=== PATIENT | female | born 1930 | race Caucasian/White ===

== ENCOUNTER 2017-11-18 13:01 | Inpatient (IN) | payer OTHER, MEDICARE ==
[~2017-11-18] VITALS: Ht 160 cm; Wt 87.0 kg
--- NOTE | 2017-11-18 14:14 | ED GENERAL ADULT ---
History of Present Illness General Chief Complaint: Syncope and Near-Syncope Stated Complaint: SYNCOPE Source: patient, family, EMS Exam Limitations: no limitations Vital Signs & Intake/Output Vital Signs & Intake/Output Vital Signs Date Time Temp Pulse Resp B/P B/P Pulse O2 O2 Flow FiO2 Mean Ox Delivery Rate 11/18 1700 98.4 67 14 124/64 98 Nasal 4.0L Cannula 11/18 1616 98.2 68 16 146/60 97 Nasal 4.0L Cannula 11/18 1509 98.4 84 22 146/78 99 Room Air 11/18 1348 72 20 127/56 95 Nasal 5.0L Cannula 11/18 1330 78 24 80/48 84 Room Air 11/18 1310 98.9 75 24 91/51 96 Room Air Allergies Coded Allergies: No Known Allergies (11/18/17) Reconcile Medications Amlodipine Besylate 10 MG TABLET 1 TAB PO DAILY HTN (Reported) Atenolol 50 MG TABLET 1 TAB PO DAILY HTN (Reported) Cholecalciferol (Vitamin D3) (Vitamin D) 1,000 UNIT TABLET 1 TAB PO DAILY SUPPLEMENT (Reported) Cyanocobalamin (Vitamin B-12) 1,000 MCG TABLET 1 TAB PO DAILY SUPPLEMENT ( Reported) Indapamide 1.25 MG TABLET 1 TAB PO TWICE WEEKLY HTN (Reported) Iron Polysaccharide Complex (Ferrex 150) 150 MG IRON CAPSULE 1 CAP PO DAILY SUPPLEMENT (Reported) Nitroglycerin 0.4 MG TAB.SUBL 1 TAB SL AD Chest Pain (Reported) 1st sign of attack; may repeat every 5 minutes until relief; if pain persists after 3 tablets in 15 minutes, prompt medical att Rosuvastatin Calcium (Crestor) 40 MG TABLET 1 TAB PO DAILY HLD/CAD (Reported) Warfarin Sodium (Coumadin) 4 MG TABLET 1 TAB PO AD AFIB (Reported) Triage Note: 87F BIBA FROM HOME AFTER SYNCOPAL EPISODE WITH LOC FOR APPROX 1 MINUTE. ARRIVES PALE, SOMEWHAT LETHARGIC. HX CABG, AFIB ON COUMADIN. PT ARRIVES REPORTING HAVING TO GO TO THE BATHROOM, AND DESPITE WEAKNESS INSISTED ON USE OF COMMODE INSTEAD OF BEDPAN. UPON STANDING PT HAD BRIEF LOC ON COMMODE AND ASSISTED X3 TO STRETCHER. VERY LETHARGIC STATING "IM GOING TO ." PT HAD A LARGE, BLACK/BLOODY LOOSE BOWEL MOVEMENT. DENIES ABDOMINAL PAIN. PERRLA. NORMAL S1S2 AND LUNG SOUNDS CLEAR. DENIES ANY PAIN OR HEADACHES. Triage Nurses Notes Reviewed? yes Onset: Gradual Duration: week(s): Timing: multiple episodes today Injury Environment: home Severity: severe No Modifying Factors: none Associated Symptoms: diaphoresis LMP (ages 10-50): post menopausal : No Patient currently breastfeeds: No HPI: This is an 87 yo woman w hx of CAD sp CABG, a fib on coumadin, HTN on BB who presents from home w several weeks of progressive weakness which abruptly worsened today; famly notes that she has had intermittent dark stool also for several weeks. Last coumadin dose last night. She arrives hypotensive, pale appearing, diaphoretic and complaining of dyspnea; she denies any fever/chills, abd pain, C/P. She has brief episode of syncope on my initial evaluation; is markedly hypotensive and requires immediate stabilization. Past History Travel History Traveled to [place] past 21 day No Medical History Any Pertinent Medical History? see below for history Neurological: dementia EENT: NONE Cardiovascular: AFIB, hypertension, CABG Respiratory: NONE (patient on 2LPM home O2) Gastrointestinal: GI BLEED Hepatic: NONE Renal: chronic kidney disease Musculoskeletal: NONE Psychiatric: NONE Endocrine: NONE Surgical History Surgical History: none (cabg), CABG Psychosocial History What is your primary language Estonian Tobacco Use: Never used Family History Hx Contributory? Yes Review of Systems Review of Systems Constitutional: Reports: see HPI, diaphoresis, malaise, weakness. EENTM: Reports: no symptoms. Respiratory: Reports: short of breath. Cardiovascular: Reports: syncope. GI: Reports: melena, changes in stool. Musculoskeletal: Reports: no symptoms. Skin: Reports: no symptoms. Neurological/Psychological: Reports: no symptoms. Hematologic/Endocrine: Reports: no symptoms. Immunologic/Allergic: Reports: no symptoms. Physical Exam Physical Exam General Appearance: lethargic, moderate distress, obese, Pale appearing Head: atraumatic Eyes: Bilateral: normal appearance. Ears, Nose, Throat: normal pharynx (conj pallor) Neck: supple Respiratory: normal breath sounds Cardiovascular: regular rate/rhythm (thready pulses), thready pulses Gastrointestinal: soft, non-tender, melana stools; no taylor blood Rectal: black stool Back: normal inspection Extremities: normal inspection Neurologic/Psych: no motor/sensory deficits Skin: diaphoresis, pallor Lymphatic: adenopathy Core Measures ACS in differential dx? Yes CVA/TIA Diagnosis: No Sepsis Present: No Sepsis Focused Exam Completed? No Progress Differential Diagnoses I considered the following diagnoses in my evaluation of the patient: [Upper GI bleed, lower GI bleed, occult infection, ACS, GI cancer, symptomatic anemia, coumadin overdose] Plan of Care: Orders Procedure Date/time Status Nothing by Mouth 11/19 B Active TROPONIN LEVEL 11/19 0300 Active PROTHROMBIN TIME 11/19 0300 Active ICU LAB BUNDLE 11/19 0300 Active CBC WITHOUT DIFFERENTIAL 11/19 0300 Active EKG 11/19 0300 Active Clear Liquid Diet 11/18 D Complete TROPONIN LEVEL 11/18 2100 Active LACTIC ACID 11/18 2100 Active CBC WITHOUT DIFFERENTIAL 11/18 2100 Active EKG 11/18 2100 Active BLOOD PRODUCT PICKUP 11/18 1734 Active Wound Care/Dressing 11/18 1726 Complete Weight 11/18 1726 Active VTE Mechanical Prophylaxis 11/18 1726 Active Vital Signs 11/18 1726 Active Turn and Reposition 11/18 1726 Active Drains/Tubes 11/18 1726 Complete Teach/Educate 11/18 1726 Active Skin Integrity Protocol 11/18 1726 Active Skin/Pressure Ulcer Assess (Sk 11/18 1726 Active Precautions 11/18 1726 Active Pain Treatment and Response 11/18 1726 Active Nutritional Intake, Monitor 11/18 1726 Active Isolation 11/18 1726 Active CIWA 11/18 1726 Complete Patient Care Conference 11/18 1726 Active Activity/Ambulation 11/18 1726 Active LEUKOCYTE POOR (PACKED CELLS) 11/18 1711 Active FRESH FROZEN PLASMA 11/18 1711 Active LACTIC ACID 11/18 1651 Active ECHOCARDIOGRAM 11/18 1651 Active OXYGEN SETUP (GEN) 11/18 1645 Active Pathway - chart 11/18 1645 Active VRE ACTIVE SURVIELLANCE 11/18 1645 Active Code Status 11/18 1645 Active ACTIVE SURVEILLANCE NARES 11/18 1602 Active LEUKOCYTE POOR (PACKED CELLS) 11/18 1546 Active Admit to inpatient 11/18 1537 Active Patient Data 11/18 1533 Active TROPONIN LEVEL 11/18 1450 Complete PARTIAL THROMBOPLASTIN TIME 11/18 1450 Complete LACTIC ACID 11/18 1351 Complete LEUKOCYTE POOR (PACKED CELLS) 11/18 1350 Active Intake & Output 11/18 1344 Active EKG 11/18 1328 Active TYPE & SCREEN (NOT X-MATCH) 11/18 1317 Active PROTHROMBIN TIME 11/18 1314 Complete COMPREHENSIVE METABOLIC PANEL 11/18 1314 Complete CBC WITHOUT DIFFERENTIAL 11/18 1314 Complete VTE Mechanical Prophylaxis 11/18 UNK Active MISTAKE 11/18 UNK Active Hemoccult 11/18 UNK Active Current Medications Sig/Victoriano Start time Last Medication Dose Stop Time Status Admin Pantoprazole Sodium 40 MG BID 11/18 2100 AC (Protonix) Nystatin 1 JORDYN TID PRN 11/18 1730 AC (Mycostatin) Acetaminophen 650 MG Q6P PRN 11/18 1645 AC (Tylenol) Acetaminophen 1,000 MG Q6P PRN 11/18 1645 AC (Ofirmev) Laboratory Tests 11/18/17 1700: Lactic Acid Pending 11/18/17 1450: Lactic Acid 2.1 11/18/17 1450: Anion Gap 12, Estimated GFR 33 L, BUN/Creatinine Ratio 22.7, Glucose 114 H, Calcium 7.5 L, Total Bilirubin 0.3, AST 13 L, ALT 18, Alkaline Phosphatase 49, Troponin I < 0.01, Total Protein 4.8 L, Albumin 2.5 L, Globulin 2.3, Albumin/ Globulin Ratio 1.1, PT 35.9 H, INR 3.25 H, APTT 30, CBC w Diff NO MAN DIFF REQ , RBC 2.59 L, MCV 87.9, MCH 29.1, MCHC 33.1, RDW 15.3 H, MPV 10.8 H, Gran % 87.2 H, Lymphocytes % 8.6 L, Monocytes % 4.1, Eosinophils % 0, Basophils % 0.1 , Absolute Granulocytes 8.2 H, Absolute Lymphocytes 0.8 L, Absolute Monocytes 0.4, Absolute Eosinophils 0, Absolute Basophils 0 11/18/17 1317: Troponin I Cancelled, APTT Cancelled Microbiology 11/18 1640 UPPER RESP: Surveillance Culture - RECD 11/18 1640 GI: Surveillance Culture - RECD Initial ED EKG: normal sinus rhythm, T wave inversion to Avl Rhythm Strip: normal sinus rhythm Comments: Large bore access obtained; ecg done; labs ordered; Gi consulted; Dr Rivero agrees with plan for ICU admission, possible scope pending INR; Patient improves with IVF; BP stable on recheck Case discussed with on-call training representative and pot tender; they agree with iCU admission, Vit K, transfusion of PRBC and protonix. Dr Yarbrough requests that we hold on FFP at this time. Will hold unless patient has recurrence of bleeding or becomes unstable. Lactate is noted to be mildly elevated; likely 2/2 poor perfusion related to hypotension rather than infection; will hold off on abx at this time; plan to reassess frequently Departure Departure Disposition: STILL A PATIENT Condition: Stable Clinical Impression Primary Impression: GI bleed Secondary Impressions: Symptomatic anemia, Syncope Referrals: Clare Zambrano MD (PCP/Family) Departure Forms: Customer Survey General Discharge Information Admission Note Spoke With: Noris Yarbrough MD Documentation of Exam: Documentation of any treatments & extenuating circumstances including Concerns Regarding Discharge (functional status, medication knowledge or non-compliance, living conditions, etc.) that warrant an admission rather than observation: GI bleed requiring blood transfusion, close monitoring, GI evaluation Critical Care Note Critical Care Note Critical Care Time: 30-74 min ED Attending Observation Initial Observation Note: I have seen and personally examined KB DIAZ on 11/18/17 at 1544. I agree with the current emergency department documentation. The disposition (admission or discharge) is uncertain at this time, she needs a period of observation for the following reason(s): The ED Nurse caring for this patient has been personally informed as to what the patient is being observed for.
--- NOTE | 2017-11-18 14:54 | RADIOLOGY REPORT ---
EXAMINATION: XR PORTABLE CHEST CLINICAL INFORMATION: Syncope COMPARISON: None TECHNIQUE: Portable frontal view of the chest was obtained. FINDINGS: Limited portable AP study. Patient is status post median sternotomy. The sternal wires appear grossly intact. The cardiac silhouette is top normal. There are heavy calcifications at the level of the aortic arch. There is obscuration of the left hemidiaphragm. This may be related to a combination of consolidation and or effusion. In addition, there are suspected left sided lateral rib fractures possibly involving the left sixth through eighth ribs. No definite left pneumothorax. The right lung appears clear aside from basilar atelectasis. There are surgical clips in the left lower cervical region. IMPRESSION: 1. Challenging study secondary to technical factors. 2. Question developing pneumonia at the left lung base with a small to moderate left parapneumonic effusion. Alternatively, if there is a history of recent trauma there may be a hemorrhagic effusion related to adjacent rib fractures which are partially imaged and not well seen on this study secondary to technical factors.
[2017-11-18 15:04] LABS: ABSOLUTE BASOPHIL COUNT 0 /CUMM (0.0-0.2); ABSOLUTE EOSINOPHIL COUNT 0 /CUMM (0.0-0.7); ABSOLUTE GRANULOCYTE CT 8.2 /CUMM (1.4-6.5); ABSOLUTE LYMPH COUNT 0.8 /CUMM (1.2-3.4); ABSOLUTE MONOCYTE COUNT 0.4 /CUMM (0.10-0.60); BASOPHIL % 0.1 % (0.0-2.0); EOSINOPHIL % 0 % (0-5); HEMATOCRIT 22.8 % (37-47); MEAN CORPUSCULAR HGB 29.1 PG (27.0-31.0); MEAN CORPUSCULAR HGB CONC 33.1 G/DL (33.0-37.0); MEAN CORPUSCULAR VOLUME 87.9 FL (81.0-99.0); MEAN PLATELET VOLUME 10.8 FL (7.4-10.4); PLATELET COUNT 200 /CUMM (130-400); RBC DISTRIBUTION WIDTH 15.3 % (11.5-14.5); RED BLOOD CELL CT 2.59 /CUMM (4.20-5.40); WHITE BLOOD CELL COUNT 9.4 /CUMM (4.8-10.8)
[2017-11-18 15:12] LABS: PT 35.9 SEC (9.4-12.5); PTT 30 SEC (25-37)
[2017-11-18 15:15] LABS: GRANULOCYTE % 87.2 % (42.2-75.2)
--- NOTE | 2017-11-18 16:39 | CT SCAN REPORT ---
EXAMINATION: CT HEAD WITHOUT CONTRAST CLINICAL INFORMATION: Syncope with loss of consciousness. On Coumadin. COMPARISON: None TECHNIQUE: Contiguous axial imaging was performed from the skull base to vertex without intravenous administration of contrast. DLP: 863 mGy-cm FINDINGS: There is no evidence of acute intracranial hemorrhage or territorial infarction. No abnormal mass effect or midline shift is seen. Ordaz to white matter differentiation is well preserved. No extra-axial fluid collections are identified. The ventricles are normal in size. Moderate low-attenuation within the subcortical and periventricular white matter. The osseous structures and soft tissues are normal. The mastoid air cells and visualized portions of the paranasal sinuses are well aerated. Moderate to significant calcification involving the cavernous portions of the carotid arteries. IMPRESSION: 1. No acute intracranial hemorrhage. 2. Moderate chronic small vessel ischemic change.
--- NOTE | 2017-11-18 16:55 | History & Physical ---
Jt May MD 11/18/17 1620: General Information and HPI History of Present Illness: 87 year old woman with past medical history of atrial fibrillation on coumadin, coronary artery disease s/p CABG (~2002), hypertension, and dementia brought in by ambulance after "passing out". Patient reports over the past several weeks she has been feeling progressively more fatigued. This morning she awoke in her normal state of health when she went to use the restroom. She urinated and stood up to leave and suddenly felt dizzy and "passed out". She awoke alone on the floor a short time later when she was found by her daughter Jennifer whom called EMS. Collateral information from daughter reveals that patient was actually found in her bed around noon today. She was found crying stating that she needed to use the rest room but didn't have the strength to get up and "wet the bed". The sheets were covered in dark black stool without obvious blood. Patient insisted on going to the restroom to get cleaned up and when walking there with the assistance of her daughter said she had to "throw up" but subsequently slumpped down on top of her daughter. Patients daughter then called EMS. She apparently awoke a short time later. Jennifer reports that her mother has "severe dementia" and has been using a walker due to fatigue and weakness over the past few weeks. She had been apparently having dark stools over the past few days. Patient arrived to the [facility] ED and shortly thereafter insisted on using the commode for a bowel movement. She apparently syncopized again and was found to be unresponsive with a faint pulse and shallow breathing. She was placed in the strecher in [place] position and given a normal saline bolus. Presently patient states that she feels well and other than her fatigue she has no complaints. She denies any recent dark stools, new medications, or use of NSAIDS. She does not believe she hit her head when she fell and was no confused afterward. Review of Systems Specifically she denies any headache, fever, chills, blurred / double vision, current lightheadedness or dizziness, chest pain, palpitations, heartburn, orthopnea, shortness of breath, cough, nausea, vomiting, diarrhea, urinary complaints, numbness, tingling, or weakness. Social History Patient smoked 1.5 ppd for most of her life but quit 25 years ago. She denies using alcohol or recreational drugs. She recently moved from [place] to [place] to live with her daughter Jennifer. She usually ambulates without assistance but has been using a walker recently. She reports multiple recent falls. She requires help with medications and meal preparation. Allergies/Medications Allergies: Coded Allergies: No Known Allergies (11/18/17) Past History Travel History Traveled to [place] past 21 day No Medical History Neurological: dementia EENT: NONE Cardiovascular: AFIB, hypertension, CABG Respiratory: NONE (patient on 2LPM home O2) Gastrointestinal: GI BLEED Hepatic: NONE Renal: chronic kidney disease Musculoskeletal: NONE Psychiatric: NONE Endocrine: NONE Surgical History Surgical History: CABG, carotid endarterectomy x3 Past Family/Social History Psychosocial History Where do you live? Home Who Do You Live With? child Primary Language: Occitan Smoking Status: Former Smoker ETOH Use: denies use Illicit Drug Use: denies illicit drug use Functional Ability ADLs Independent: dressing, eating, toileting, bathing. Ambulation: independent, walker IADLs Independent: shopping, housework, finances, food prep, telephone. Needs Assist: transportation, medication admin. Review of Systems Review of Systems Constitutional: Reports: see HPI. Exam & Diagnostic Data Last 24 Hrs of Vital Signs/I&O Vital Signs Date Time Temp Pulse Resp B/P B/P Pulse O2 O2 Flow FiO2 Mean Ox Delivery Rate 11/18 1616 98.2 68 16 146/60 97 Nasal 4.0L Cannula 11/18 1509 98.4 84 22 146/78 99 Room Air 11/18 1348 72 20 127/56 95 Nasal 5.0L Cannula 11/18 1330 78 24 80/48 84 Room Air 11/18 1310 98.9 75 24 91/51 96 Room Air Intake & Output 11/18 1600 11/18 0800 06/ 0000 Intake Total 2000 Output Total 100 Balance 1900 Intake, IV 2000 Output, Urine 100 Physical Exam General Appearance Alert, Oriented X3, Cooperative, No Acute Distress Skin No Rashes, No Breakdown, No Significant Lesion Skin Temp/Moisture Exam: Warm/Dry Sepsis Skin Exam (color): Normal for Ethnicity HEENT Atraumatic, PERRLA, EOMI, Mucous Membr. moist/pink Neck Supple, No JVD Cardiovascular Regular Rate, Normal S1, Normal S2, No Murmurs Lungs Clear to Auscultation, Normal Air Movement Abdomen Normal Bowel Sounds, Soft, No Tenderness, No Hepatospenomegaly, No Masses Neurological Normal Speech, Normal Tone, Cranial Nerves 3-12 NL Extremities No Clubbing, No Cyanosis, No Edema, Normal Pulses, No Tenderness/ Swelling Vascular Normal Pulses, Pulses Symmetrical Sepsis Peripheral Pulse Location: Dorsalis Pedis Sepsis Peripheral Pulse Exam: Normal Sepsis Cap Refill Exam: <2 Sec Rectal [place] Positive stool Last 24 Hrs of Labs/Georges: Laboratory Tests 11/18/17 1450: Lactic Acid 2.1 11/18/17 1450: Anion Gap 12, Estimated GFR 33 L, BUN/Creatinine Ratio 22.7, Glucose 114 H, Calcium 7.5 L, Total Bilirubin 0.3, AST 13 L, ALT 18, Alkaline Phosphatase 49, Troponin I < 0.01, Total Protein 4.8 L, Albumin 2.5 L, Globulin 2.3, Albumin/ Globulin Ratio 1.1, PT 35.9 H, INR 3.25 H, APTT 30, CBC w Diff NO MAN DIFF REQ , RBC 2.59 L, MCV 87.9, MCH 29.1, MCHC 33.1, RDW 15.3 H, MPV 10.8 H, Gran % 87.2 H, Lymphocytes % 8.6 L, Monocytes % 4.1, Eosinophils % 0, Basophils % 0.1 , Absolute Granulocytes 8.2 H, Absolute Lymphocytes 0.8 L, Absolute Monocytes 0.4, Absolute Eosinophils 0, Absolute Basophils 0 11/18/17 1317: Troponin I Cancelled, APTT Cancelled Microbiology 11/18 1602 UPPER RESP: Surveillance Culture - ORD Assessment/Plan Assessment: 87 year old woman with multiple medical problems significant for atrial fibrillation on coumadin and coronary artery disease brought in by ambulance after passing out at home. Patient was found to be hypoxic and hypotensive for which she was given intravenous fluids in the ED and placed on supplemental oxygen. Vitamin K and FFP were given for a supratherapeutic INR and active bleeding. For further evaluation of these findings she was admitted to the ICU. Patient feels at baseline other than her new fatigue. Patients vitals remain stable at rest after the fluid bolus on small amount of supplement oxygen via nasal cannula. Labs are significant for hemoglobin of 7.6, creatinine of 1.5, lactic acid of 2.1, and INR of 3.25. Patient received 10 mg of IM vitamin K and FFP. CT Head was negative for acute intracranial bleed. CXR demonstrated a questionable pneumonia. EKG demonstrated ST segment depressions in V3-V6, AvL, and I with nonspecific interventricular conduction delay. Troponin is negative. Clinically patient appears to have syncopized secondary to her slow presumed lower GI bleed and associated acute blood loss anemia. Patient should be monitored on telemetry with serial CBC and troponin. Consent for blood tranfusion obtained and placed on chart. Patient may require endoscopic evaluation for her GI bleed. Patient will be given 1 PRBC and 2 units FFP and maintained on protonix. Collateral information obtained from patients daughters Jennifer and Marsha reveals that patient had a similar episode about 25 years ago due to a bleeding "stomach polyp". She is followed by thermostat maker Dr. Randy Castanon and was seen in the [facility] ED last week for evaluation of fatigue and discharged to home. Problem List -Syncope with fall -Acute blood loss anemia, probable GI bleed -Possible acute kidney injury -Supratherapeutic INR -Atrial Fibrillation, on Coumadin -Coronary artery disease s/p CABG -Hypertension -Dementia Plan -Admit to ICU -Supplemental oxygen, goal > 92%, taper as tolerated -Telemetry monitoring -Guaic all stools -Avoid NSAIDS and nephrotoxic agents -2 large-bore peripheral IVs -Start IV fluids if needed -Hold meds: amlodipine, atenolol, supplements, indapamide, iron, ntg, statin, coumadin -GI consult for GI bleed and possible endoscopy -Type and cross -CBC every 6 hours -Daily CBC, ICU bundle, INR -Transfuse PRBC as needed to hemoglobin > 8.0 -Trend troponin / EKG until peak or three negative sets -Transthoracic echocardiogram -Check orthostatics -Pain control with acetaminophen -Clear liquids today, NPO after midnight for possible endoscopy -DVT prophylaxis with ALPS -DNR/DNI As Ranked By This Provider Problem List: 1. GI bleed 2. Acute blood loss anemia 3. Syncope Core Measures/Misc (03/05) Acute Coronary Syndrome ACS Diagnosis: No Congestive Heart Failure Congestive Heart Failure Diagnosis No Cerebrovascular Accident CVA/TIA Diagnosis: No VTE (View Protocol) VTE Risk Factors Age>40 No Mechanical VTE Prophylaxis d/t N/A MechProphylax Ordered No VTE Pharm Prophylaxis d/t Bleeding (Active) Sepsis (View protocol) Sepsis Present: No If YES complete Sepsis Event Note If YES complete Sepsis Event Note Noris Yarbrough 11/18/172: General Information and HPI Allergies/Medications Home Med list Amlodipine Besylate 10 MG TABLET 1 TAB PO DAILY HTN (Reported) Atenolol 50 MG TABLET 1 TAB PO DAILY HTN (Reported) Cholecalciferol (Vitamin D3) (Vitamin D) 1,000 UNIT TABLET 1 TAB PO DAILY SUPPLEMENT (Reported) Cyanocobalamin (Vitamin B-12) 1,000 MCG TABLET 1 TAB PO DAILY SUPPLEMENT ( Reported) Indapamide 1.25 MG TABLET 1 TAB PO TWICE WEEKLY HTN (Reported) Iron Polysaccharide Complex (Ferrex 150) 150 MG IRON CAPSULE 1 CAP PO DAILY SUPPLEMENT (Reported) Nitroglycerin 0.4 MG TAB.SUBL 1 TAB SL AD Chest Pain (Reported) 1st sign of attack; may repeat every 5 minutes until relief; if pain persists after 3 tablets in 15 minutes, prompt medical att Pantoprazole Sodium (Protonix) 40 MG TABLET.DR 1 TAB PO BID s/p GI Bleed Rosuvastatin Calcium (Crestor) 40 MG TABLET 1 TAB PO DAILY HLD/CAD (Reported) Warfarin Sodium (Coumadin) 4 MG TABLET 1 TAB PO AD AFIB (Reported) Core Measures/Misc (03/05) Sepsis (View protocol) If YES complete Sepsis Event Note If YES complete Sepsis Event Note Attending MD Review Statement Attending Statement Attending MD Statement: examined this patient, discuss w/resident/PA/PATHOLOGY LABORATORY AIDE, agreed w/resident/PA/PATHOLOGY LABORATORY AIDE, reviewed EMR data (avail) Attending Assessment/Plan: Patient being admittied for GI bleed and syncope and found to be hypotensive in ER. Pt being admitted to ICU for close monitoring . Pt was given vitamin K in Er and we will give her FFP and will transfuse her I U of PRBC and monitor her hemoglobin closely. D/ w GI dr Griffin and he is going to follow the patient closely with us and will scope the patient likely tomorrow. Will also put the patient on protonix iv for now. Keep her NPO. Will recheck INR after FFPs. In case pt becomes hypotensive or drops her H/h she will get emergent colonoscopy. d/w pt and pts famiy the care plan.
--- NOTE | 2017-11-18 16:55 | Admission Certification ---
Admission Certification Certification Statement - As attending physician, I certify that at the time of - admission, based on clinical presentation, severity of - symptoms, need for further diagnostic testing and - therapeutic interventions, and risk of adverse outcomes - without in-hospital treatment, in my clinical assessment, - this patient requires an acute hospital stay for a minimum - of two nights or longer. I have also considered psychsocial - factors such as support system, advanced age, financial - issues, cognitive issues, and failed out-patient treatments, - past re-admission history, safety of patient, and lack of - compliance as applicable. Specific rationale supporting this admission is: GI bleed with anemia and hypotension.
[2017-11-18 17:00] VITALS: BP 124/64
[2017-11-18] MEDS ORDERED: AMLODIPINE BESY10 M1 PO (17:49)
[2017-11-18] MEDS ORDERED: ATENOLOL50 M1 PO (17:49)
[2017-11-18] MEDS ORDERED: VITAMIN B-121000 MC3 PO (17:49)
[2017-11-18] MEDS ORDERED: FERREX 150150 M1 PO (17:49)
[2017-11-18] MEDS ORDERED: INDAPAMIDE1.25 M1 PO (17:50)
[2017-11-18] MEDS ORDERED: NITROGLYCERIN0.4 M1 SL (17:50)
[2017-11-18] MEDS ORDERED: CRESTOR40 M2 PO (17:50)
[2017-11-18] MEDS ORDERED: VITAMIN D1000 UNIT PO (17:51)
[2017-11-18] MEDS ORDERED: COUMADIN4 M1 PO (17:52)
--- NOTE | 2017-11-18 20:55 | Cons- Gastroenterology ---
General Information and HPI Consulting Request Date of Consult: 11/18/17 Requested By: Noris Yarbrough MD Reason for Consult: Melena Blood loss anemia History of Present Illness: The patient is a poor historian. She denies all GI symptoms. She was brought to the emergency room because of several days of dark stool (per records), and found to be hypotensive. She is anticoagulated. There is no known history of GI bleeding, peptic ulcer disease, liver disease. Per discussion with the patient's daughters, she was diagnosed with anemia and placed on oral iron in February. She has no GI complaints such as nausea, pain or indigestion. For the past 3 weeks she's had loss of appetite, decreased oral intake, and weight loss. She was found to have a black stool today and transported to the emergency room. Allergies/Medications Allergies: Coded Allergies: No Known Allergies (11/18/17) Home Med List: Amlodipine Besylate 10 MG TABLET 1 TAB PO DAILY HTN (Reported) Atenolol 50 MG TABLET 1 TAB PO DAILY HTN (Reported) Cholecalciferol (Vitamin D3) (Vitamin D) 1,000 UNIT TABLET 1 TAB PO DAILY SUPPLEMENT (Reported) Cyanocobalamin (Vitamin B-12) 1,000 MCG TABLET 1 TAB PO DAILY SUPPLEMENT ( Reported) Indapamide 1.25 MG TABLET 1 TAB PO TWICE WEEKLY HTN (Reported) Iron Polysaccharide Complex (Ferrex 150) 150 MG IRON CAPSULE 1 CAP PO DAILY SUPPLEMENT (Reported) Nitroglycerin 0.4 MG TAB.SUBL 1 TAB SL AD Chest Pain (Reported) 1st sign of attack; may repeat every 5 minutes until relief; if pain persists after 3 tablets in 15 minutes, prompt medical att Rosuvastatin Calcium (Crestor) 40 MG TABLET 1 TAB PO DAILY HLD/CAD (Reported) Warfarin Sodium (Coumadin) 4 MG TABLET 1 TAB PO AD AFIB (Reported) Current Medications: Current Medications Sig/Victoriano Start time Last Medication Dose Route Stop Time Status Admin Acetaminophen 650 MG Q6P PRN 11/18 1645 AC PO Acetaminophen 1,000 MG Q6P PRN 11/18 1645 AC IV Dextrose/Sodium 1,000 ML .[id number] 11/18 1645 DC Chloride IV Nystatin 1 JORDYN TID PRN 11/18 1730 AC TOP Pantoprazole Sodium 40 MG BID 11/18 2100 AC IV Pantoprazole Sodium 0 .STK-MED ONE 11/18 1435 DC IV Pantoprazole Sodium 80 MG ONCE ONE 11/18 1400 DC 06/ IV 11/18 1401 1439 Phytonadione 0 .STK-MED ONE 11/18 1436 DC .ROUTE Phytonadione 10 MG ONCE ONE 11/18 1400 DC 06/02 IM 11/18 1401 1439 Past History Travel History Traveled to [place] past 21 day No Medical History Neurological: dementia EENT: NONE Cardiovascular: AFIB, hypertension, CABG Respiratory: NONE (patient on 2LPM home O2) Gastrointestinal: GI BLEED Hepatic: NONE Renal: chronic kidney disease Musculoskeletal: NONE Psychiatric: NONE Endocrine: NONE Surgical History Surgical History: CABG, 1 (cabg) Psychosocial History Where Do You Live? Home Who Do You Live With? child Services at Home: None Primary Language: Malagasy Smoking Status: Former Smoker ETOH Use: denies use Illicit Drug Use: denies illicit drug use Functional Ability ADLs Independent: dressing, eating, toileting, bathing. Ambulation: independent, walker IADLs Independent: shopping, housework, finances, food prep, telephone. Needs Assist: transportation, medication admin. Exam & Diagnostic Data Vital Signs and I&O Vital Signs Date Time Temp Pulse Resp B/P B/P Pulse O2 O2 Flow FiO2 Mean Ox Delivery Rate 11/18 1700 98 Nasal 3.0L Cannula 11/18 1700 98.4 67 14 124/64 98 Nasal 4.0L Cannula 11/18 1616 98.2 68 16 146/60 97 Nasal 4.0L Cannula 11/18 1509 98.4 84 22 146/78 99 Room Air 11/18 1348 72 20 127/56 95 Nasal 5.0L Cannula 11/18 1330 78 24 80/48 84 Room Air 11/18 1310 98.9 75 24 91/51 96 Room Air Intake & Output 11/18 1600 11/18 0400 11/17 1600 11/17 0400 11/16 1600 11/16 0400 Intake Total 2000 Output Total 100 Balance 1900 Intake, IV 2000 Output, Urine 100 Results Pertinent Lab Results: Laboratory Tests 11/18 11/18 11/18 1700 1450 1450 Chemistry Sodium (137 - 145 mmol/L) 146 H Potassium (3.5 - 5.1 mmol/L) 3.9 Chloride (98 - 107 mmol/L) 114 H Carbon Dioxide (22 - 30 mmol/L) 20 L Anion Gap (5 - 16) 12 BUN (7 - 17 mg/dL) 34 H Creatinine (0.5 - 1.0 mg/dL) 1.5 H Estimated GFR (>60 ml/min) 33 L BUN/Creatinine Ratio (7 - 25 %) 22.7 Glucose (65 - 99 mg/dL) 114 H Lactic Acid (0.7 - 2.1 mmol/L) 1.9 2.1 Calcium (8.4 - 10.2 mg/dL) 7.5 L Total Bilirubin (0.2 - 1.3 mg/dL) 0.3 AST (14 - 36 U/L) 13 L ALT (9 - 52 U/L) 18 Alkaline Phosphatase (<127 U/L) 49 Troponin I (< 0.11 ng/ml) < 0.01 Total Protein (6.3 - 8.2 g/dL) 4.8 L Albumin (3.5 - 5.0 g/dL) 2.5 L Globulin (1.9 - 4.2 gm/dL) 2.3 Albumin/Globulin Ratio (1.1 - 2.2 %) 1.1 Coagulation PT (9.4 - 12.5 SEC) 35.9 H INR (0.90 - 1.19) 3.25 H APTT (25 - 37 SEC) 30 Hematology CBC w Diff NO MAN DIFF REQ WBC (4.8 - 10.8 /CUMM) 9.4 RBC (4.20 - 5.40 /CUMM) 2.59 L Hgb (12.0 - 16.0 G/DL) 7.6 L Hct (37 - 47 %) 22.8 L MCV (81.0 - 99.0 FL) 87.9 MCH (27.0 - 31.0 PG) 29.1 MCHC (33.0 - 37.0 G/DL) 33.1 RDW (11.5 - 14.5 %) 15.3 H Plt Count (130 - 400 /CUMM) 200 MPV (7.4 - 10.4 FL) 10.8 H Gran % (42.2 - 75.2 %) 87.2 H Lymphocytes % (20.5 - 51.1 %) 8.6 L Monocytes % (1.7 - 9.3 %) 4.1 Eosinophils % (0 - 5 %) 0 Basophils % (0.0 - 2.0 %) 0.1 Absolute Granulocytes (1.4 - 6.5 /CUMM) 8.2 H Absolute Lymphocytes (1.2 - 3.4 /CUMM) 0.8 L Absolute Monocytes (0.10 - 0.60 /CUMM) 0.4 Absolute Eosinophils (0.0 - 0.7 /CUMM) 0 Absolute Basophils (0.0 - 0.2 /CUMM) 0 11/18 1317 Chemistry Troponin I Cancelled Coagulation APTT Cancelled Assessment/Plan Assessment/Recommendations: Elderly, anticoagulated female presenting with melena by description, hypotension (corrected with IV fluid resuscitation), and blood loss anemia. There is some degree of chronic anemia. She denies GI symptoms. There is no reported history of aspirin/NSAIDs. There is no known liver disease. Recommendations * Transfusion 1 unit of packed red blood cells, and follow CBC every 6 hours. Maintain hemoglobin/hematocrit at greater than 8/24. * Reversal of anticoagulation: Transfusion of 2 units of fresh frozen plasma. The patient has already been given vitamin K 10 mg IM. Follow-up INR in the morning. * IV PPI twice a day * Clear liquid diet; nothing by mouth after midnight * Please call GI immediately with evidence of rebleeding such as hematemesis, red/maroon blood per rectum, hypotension, tachycardia. The patient may need emergent endoscopy. Consult Acknowledgment - Thank you for your consult request.
[2017-11-18 21:33] LABS: ABSOLUTE BASOPHIL COUNT 0 /CUMM (0.0-0.2); ABSOLUTE EOSINOPHIL COUNT 0 /CUMM (0.0-0.7); ABSOLUTE LYMPH COUNT 1.6 /CUMM (1.2-3.4); ABSOLUTE MONOCYTE COUNT 0.4 /CUMM (0.10-0.60); BASOPHIL % 0.4 % (0.0-2.0); EOSINOPHIL % 0.1 % (0-5); GRANULOCYTE % 77.2 % (42.2-75.2); HEMATOCRIT 25.5 % (37-47); MEAN CORPUSCULAR HGB 28.9 PG (27.0-31.0); MEAN CORPUSCULAR HGB CONC 33.1 G/DL (33.0-37.0); MEAN CORPUSCULAR VOLUME 87.4 FL (81.0-99.0); PLATELET COUNT 162 /CUMM (130-400); RBC DISTRIBUTION WIDTH 14.8 % (11.5-14.5); RED BLOOD CELL CT 2.92 /CUMM (4.20-5.40); WHITE BLOOD CELL COUNT 9.1 /CUMM (4.8-10.8)
[2017-11-19] VITALS: BP 114/60
[2017-11-19 03:51] LABS: ABSOLUTE BASOPHIL COUNT 0.1 /CUMM (0.0-0.2); ABSOLUTE EOSINOPHIL COUNT 0 /CUMM (0.0-0.7); ABSOLUTE GRANULOCYTE CT 5.9 /CUMM (1.4-6.5); ABSOLUTE LYMPH COUNT 2.3 /CUMM (1.2-3.4); ABSOLUTE MONOCYTE COUNT 0.6 /CUMM (0.10-0.60); EOSINOPHIL % 0.3 % (0-5); GRANULOCYTE % 66.1 % (42.2-75.2); HEMATOCRIT 23.9 % (37-47); MEAN CORPUSCULAR HGB 29.3 PG (27.0-31.0); MEAN CORPUSCULAR HGB CONC 33.5 G/DL (33.0-37.0); MEAN CORPUSCULAR VOLUME 87.2 FL (81.0-99.0); PLATELET COUNT 155 /CUMM (130-400); RBC DISTRIBUTION WIDTH 14.9 % (11.5-14.5); RED BLOOD CELL CT 2.74 /CUMM (4.20-5.40)
[2017-11-19 03:57] LABS: PT 19.2 SEC (9.4-12.5)
--- NOTE | 2017-11-19 07:38 | PN- Resident CRCU ---
Lewis Malik 11/19/17 0738: Subjective HPI/CRCU Issues: -Syncope with fall -Acute blood loss anemia, probable GI bleed -Possible acute kidney injury -Supratherapeutic INR -Atrial Fibrillation, on Coumadin ( on hold) -Coronary artery disease s/p CABG -Hypertension -Dementia 24 Hour Events: tmax of 98.4, heart rate between 60-70 bpm, normal sinus rhythm, respiratory between 18-20, blood pressure systolic 118 up to 132, diastolic 58 up to 68. she has a total intake of 1450 and output of 950 atenolo, amlodipine, indapamide, NG, rosuvastatin and coumadin on hold Is currently on iv protonix and tylenol. H/h stable at 8.4 Lost iv access, will obtain central line for iv access. will have endoscopy today. npo currently. Objective Vital Signs & I&O Last 8 Hrs of Vitals and I&O: Vital Signs Date Time Temp Pulse Resp B/P B/P Pulse O2 O2 Flow FiO2 Mean Ox Delivery Rate 11/19 0800 99.1 63 20 130/58 95 Nasal 2.0L Cannula 11/19 0800 95 Nasal 2.0L Cannula 11/19 0400 98 Nasal 3.0L Cannula 11/19 0000 98 Nasal 3.0L Cannula / 0000 98.6 64 18 114/60 98 Nasal 3.0L Cannula / 1700 98 Nasal 3.0L Cannula 06/02 1700 98.4 67 14 124/64 98 Nasal 4.0L Cannula 06/02 1616 98.2 68 16 146/60 97 Nasal 4.0L Cannula / 1509 98.4 84 22 146/78 99 Room Air 06/ 1348 72 20 127/56 95 Nasal 5.0L Cannula /02 1330 78 24 80/48 84 Room Air 06/ 1310 98.9 75 24 91/51 96 Room Air Last 24 Hours I&Os 11/19 1600 11/19 0800 11/19 0000 Intake Total 450 1000 Output Total 700 250 Balance -250 750 Intake, Blood 350 710 Product Intake, IV 100 90 Intake, Oral 200 Number 2 1 Bowel Movements Output, Urine 700 250 Patient 87 kg Weight Weight Bed scale Measurement Method Laboratory Tests 11/19/17 0940: CBC w Diff NO MAN DIFF REQ, RBC 2.88 L, MCV 87.2, MCH 29.1, MCHC 33.4, RDW 15.3 H, MPV 10.9 H, Gran % 69.0, Lymphocytes % 23.8, Monocytes % 6.7, Eosinophils % 0.4, Basophils % 0.1, Absolute Granulocytes 6.9 H, Absolute Lymphocytes 2.4, Absolute Monocytes 0.7 H, Absolute Eosinophils 0, Absolute Basophils 0 11/19/17 0330: Anion Gap 11, Estimated GFR 35 L, Glucose 85, Calcium 8.2 L, Phosphorus 2.4 L , Magnesium 1.3 L, Total Bilirubin 0.6, AST 16, ALT 23, Troponin I 0.03, Albumin 3.0 L, PT 19.2 H, INR 1.75 H, CBC w Diff NO MAN DIFF REQ, RBC 2.74 L , MCV 87.2, MCH 29.3, MCHC 33.5, RDW 14.9 H, MPV 11.0 H, Gran % 66.1, Lymphocytes % 26.2, Monocytes % 6.4, Eosinophils % 0.3, Basophils % 1.0, Absolute Granulocytes 5.9, Absolute Lymphocytes 2.3, Absolute Monocytes 0.6, Absolute Eosinophils 0, Absolute Basophils 0.1 11/18/17 2100: Lactic Acid 1.2, Troponin I 0.01, CBC w Diff NO MAN DIFF REQ, RBC 2.92 L, MCV 87.4, MCH 28.9, MCHC 33.1, RDW 14.8 H, MPV 11.0 H, Gran % 77.2 H, Lymphocytes % 17.7 L, Monocytes % 4.6, Eosinophils % 0.1, Basophils % 0.4, Absolute Granulocytes 7.0 H, Absolute Lymphocytes 1.6, Absolute Monocytes 0.4, Absolute Eosinophils 0, Absolute Basophils 0 11/18/17 1700: Lactic Acid 1.9 11/18/17 1450: Lactic Acid 2.1 11/18/17 1450: Anion Gap 12, Estimated GFR 33 L, BUN/Creatinine Ratio 22.7, Glucose 114 H, Calcium 7.5 L, Total Bilirubin 0.3, AST 13 L, ALT 18, Alkaline Phosphatase 49, Troponin I < 0.01, Total Protein 4.8 L, Albumin 2.5 L, Globulin 2.3, Albumin/ Globulin Ratio 1.1, PT 35.9 H, INR 3.25 H, APTT 30, CBC w Diff NO MAN DIFF REQ , RBC 2.59 L, MCV 87.9, MCH 29.1, MCHC 33.1, RDW 15.3 H, MPV 10.8 H, Gran % 87.2 H, Lymphocytes % 8.6 L, Monocytes % 4.1, Eosinophils % 0, Basophils % 0.1 , Absolute Granulocytes 8.2 H, Absolute Lymphocytes 0.8 L, Absolute Monocytes 0.4, Absolute Eosinophils 0, Absolute Basophils 0 11/18/17 1317: Troponin I Cancelled, APTT Cancelled Microbiology Date/Time Procedure - Status Source Growth 11/18 1640 Surveillance Culture - RECD UPPER RESP 11/18 1640 Surveillance Culture - RECD GI Orders Procedure Date/time Status ICU LAB BUNDLE 11/20 0500 Active CBC WITHOUT DIFFERENTIAL 11/20 0500 Active Nothing by Mouth 11/19 B Active LEUKOCYTE POOR (PACKED CELLS) 11/19 0905 Active CBC WITHOUT DIFFERENTIAL 11/19 0900 Complete TROPONIN LEVEL 11/19 0300 Complete PROTHROMBIN TIME 11/19 0300 Complete ICU LAB BUNDLE 11/19 0300 Complete CBC WITHOUT DIFFERENTIAL 11/19 0300 Complete EKG 11/19 0300 Active EKG 11/19 UNK Active Clear Liquid Diet 11/18 D Complete BLOOD PRODUCT PICKUP 11/18 2346 Active BLOOD PRODUCT PICKUP 11/18 2123 Active TROPONIN LEVEL 11/18 2100 Complete LACTIC ACID 11/18 2100 Complete CBC WITHOUT DIFFERENTIAL 11/18 2100 Complete EKG 11/18 2100 Active BLOOD PRODUCT PICKUP 11/18 1734 Active Wound Care/Dressing 11/18 1726 Complete Weight 11/18 1726 Active VTE Mechanical Prophylaxis 11/18 1726 Active Vital Signs 11/18 1726 Active Turn and Reposition 11/18 1726 Active Drains/Tubes 11/18 1726 Complete Teach/Educate 11/18 172 Active Skin Integrity Protocol 11/18 1726 Active Skin/Pressure Ulcer Assess (Sk 11/18 1726 Active Precautions 11/18 1726 Active Pain Treatment and Response 11/18 1726 Active Nutritional Intake, Monitor 11/18 1726 Active Isolation 11/18 1726 Active CIWA 11/18 1726 Complete Patient Care Conference 11/18 1726 Active Activity/Ambulation 11/18 1726 Active LEUKOCYTE POOR (PACKED CELLS) 11/18 1711 Active FRESH FROZEN PLASMA 11/18 1711 Complete LACTIC ACID 11/18 1651 Complete ECHOCARDIOGRAM 11/18 1651 Active OXYGEN SETUP (GEN) 11/18 1645 Active Pathway - chart 11/18 1645 Active VRE ACTIVE SURVIELLANCE 11/18 1645 Active Code Status 11/18 1645 Active ACTIVE SURVEILLANCE NARES 11/18 1602 Active LEUKOCYTE POOR (PACKED CELLS) 11/18 1546 Active Admit to inpatient 11/18 1537 Active Patient Data 11/18 1533 Active TROPONIN LEVEL 11/18 1450 Complete PARTIAL THROMBOPLASTIN TIME 11/18 1450 Complete LACTIC ACID 11/18 1351 Complete LEUKOCYTE POOR (PACKED CELLS) 11/18 1350 Active Intake & Output 11/18 1344 Active EKG 11/18 1328 Active TYPE & SCREEN (NOT X-MATCH) 11/18 1317 Active PROTHROMBIN TIME 11/18 1314 Complete COMPREHENSIVE METABOLIC PANEL 11/18 1314 Complete CBC WITHOUT DIFFERENTIAL 11/18 1314 Complete VTE Mechanical Prophylaxis 11/18 UNK Active MISTAKE 11/18 UNK Active Hemoccult 11/18 UNK Active Exam General Appearance: alert, awake, comfortable Head: atraumatic, normal appearance Respiratory: normal breath sounds, chest non-tender Cardiovascular: regular rate/rhythm Gastrointestinal: normal bowel sounds, soft, non-tender Extremities: normal inspection, normal capillary refill, normal range of motion Cranial Nerves: normal hearing, normal speech, PERRL Skin: intact, normal color, warm/dry Back: normal inspection, normal range of motion Current Medications: Current Medications Sig/Victoriano Start time Last Medication Dose Route Stop Time Status Admin Acetaminophen 650 MG Q6P PRN 11/18 1645 AC PO Acetaminophen 1,000 MG Q6P PRN 11/18 1645 AC IV Dextrose/Sodium 1,000 ML .[id number] 11/18 1645 DC Chloride IV Lorazepam 50 MG ONCE ONE 11/19 0845 CAN Dextrose/Water 500 ML IV 11/19 0846 Magnesium Sulfate 1 GM Q2H 11/19 0800 CAN Dextrose/Water 100 ML IV 11/19 1159 Magnesium Sulfate 1 GM Q2H 11/19 0515 DC 11/19 Dextrose/Water 100 ML IV 11/19 0914 0824 Nystatin 1 JORDYN TID PRN 11/18 1730 AC 11/18 TOP 2121 Pantoprazole Sodium 40 MG BID 11/18 2100 AC 11/18 IV 2121 Pantoprazole Sodium 0 .STK-MED ONE 11/18 1435 DC IV Pantoprazole Sodium 80 MG ONCE ONE 11/18 1400 DC 06/02 IV / 1401 1439 Phytonadione 0 .STK-MED ONE 11/18 1436 DC .ROUTE Phytonadione 10 MG ONCE ONE 11/18 1400 DC 06/02 IM 06/02 1401 1439 Potassium Chloride 10 MEQ Q1H 11/19 0800 DC IV 11/19 0901 Antibiotics Antibiotics? none CXR Findings: SERVICE DATE: 11/18/17 EXAM TYPE: RAD - XRY-PORTABLE CHEST XRAY EXAMINATION: XR PORTABLE CHEST CLINICAL INFORMATION: Syncope COMPARISON: None TECHNIQUE: Portable frontal view of the chest was obtained. FINDINGS: Limited portable AP study. Patient is status post median sternotomy. The sternal wires appear grossly intact. The cardiac silhouette is top normal. There are heavy calcifications at the level of the aortic arch. There is obscuration of the left hemidiaphragm. This may be related to a combination of consolidation and or effusion. In addition, there are suspected left sided lateral rib fractures possibly involving the left sixth through eighth ribs. No definite left pneumothorax. The right lung appears clear aside from basilar atelectasis. There are surgical clips in the left lower cervical region. IMPRESSION: 1. Challenging study secondary to technical factors. 2. Question developing pneumonia at the left lung base with a small to moderate left parapneumonic effusion. Alternatively, if there is a history of recent trauma there may be a hemorrhagic effusion related to adjacent rib fractures which are partially imaged and not well seen on this study secondary to technical factors. CT Scan Findings: SERVICE DATE: 11/18/17 EXAM TYPE: CAT - CT HEAD WO IV CONTRAST EXAMINATION: CT HEAD WITHOUT CONTRAST CLINICAL INFORMATION: Syncope with loss of consciousness. On Coumadin. COMPARISON: None TECHNIQUE: Contiguous axial imaging was performed from the skull base to vertex without intravenous administration of contrast. DLP: 863 mGy-cm FINDINGS: There is no evidence of acute intracranial hemorrhage or territorial infarction. No abnormal mass effect or midline shift is seen. Ordaz to white matter differentiation is well preserved. No extra-axial fluid collections are identified. The ventricles are normal in size. Moderate low-attenuation within the subcortical and periventricular white matter. The osseous structures and soft tissues are normal. The mastoid air cells and visualized portions of the paranasal sinuses are well aerated. Moderate to significant calcification involving the cavernous portions of the carotid arteries. IMPRESSION: 1. No acute intracranial hemorrhage. 2. Moderate chronic small vessel ischemic change. DICTATED BY: Jennifer Calhoun MD DATE/TIME DICTATED:11/18/171633 INSULATION WORKER INTERIOR SURFACE:ALONSO DATE/TIME TRANSCRIBED:11/18/171633 Impression/Plan Impression/Problem List Impression: Ms. Herrmann is a 87-year-old female with past medical history of atrial fibrillation on Coumadin, coronary artery disease status post CABG (2002, hypertension, dementia was brought in by ambulance after a chief complaint of passing out. Collateral information from the daughter revealed that she has been having dark black stool without obvious blood in the last few days along with extreme tiredness and fatigue. She had another episode of syncope at the [facility] emergency department while using the commode. Upon arrival her H/H was found to be 7.6/22.8, MCV of 87.9. BUN/creatinine 34/1.5. Electrolytes sodium of 146, potassium of 3.9, chloride of 114, bicarbonate 20. Her albumin was low at 2.5 and total protein 4.8. At the emergency department, she was found to be hypoxic and hypotensive, was given IV fluids and placed on supplemental oxygen. She she was also found to have a supratherapeutic INR and active bleeding therefore was given FFP and vitamin K. It was also revealed that patient had a similar episode 25 years ago due to bleeding from a stomach polyp. Problem list alongwith assessment and plan : Respiratory Continue to monitor oxygen saturation. Continue to maintain O2 saturation greater than 92%. Infectious disease Cardiology #syncope with fall #atrial fibrillation on anticoagulation. #coronary artery disease status post CABG. #hypertension. * B/p , heart rate stable, continue to monitor on tele, watch BP closely, ct iv hydration, ct to hold all antihtn, cardiac and AC meds. * syncope 2/2 to low blood volume 2/2 to blood loss. * will have EGd today. * Rate under control, ct to monitor. Hematology #acute blood loss anemia, probable source GI. #supratherapeutic INR. * continue to monitor H/H with the goal of hemoglobin above 8, am labs stable hgb - 8.4 * will transfuse one more unit prior to procedure. * After FFP and Vit k , INR 1.75, improved nicely, okay to proceed with GI procedure. * ct to monitor CBC * source most likely GI, will follow endoscopy results. Metabolic * hypokalemia/hypermagnesemia * replete as needed and ct to monitor * Keep Mg > 2 and K > 4 Alimentary/ GI * NPo now * Guaiac positive stools * endoscopy planned today * ct iv PPI Neurology #Dementia. * Reorientation , avoid anticholinergics, dehydration,however she understands questions and answers relevantly today morning when talked about central line procedure, however consent was also obtained from daughters. Nephrology #Acute kidney injury. * prerenal 2/2 to volume loss * ct to monitor, iv hydration, avoid nephrotoxins. Diet : NPO DVT Px : ALPS ( GI Bleed) Pain MX tylenol DNR/DNI Problem List: 1. Symptomatic anemia 2. Syncope 3. Acute blood loss anemia 4. GI bleed Pain Ratin Tomorrow's Labs & Rationales: bep, cbc Plan DVT/Prophylaxis: pharmacological Dixie JOHN,[facility] 11/19/17 0818: Attending MD Review Statement Attending Sign Off Attending Cosign Statement: I have: examined this patient, reviewed DEUSal EMR data, personally reviewd images, discussd w/resident/PA/BUSINESS ANALYTICS SPECIALIST, discussed mgmt plan w/jen, discussed mgmt plan w/CM, discussed mgmt plan w/pt, agreed w/resident/PA/BUSINESS ANALYTICS SPECIALIST, amended to note. Other Findings: Seen and examined independently No significant GI bleed noted this morning however continues to have dark stools No significant tachycardia heart rate is 64 O2 sat 98% on 3 L No other complaints patient continues to have bowel movements Afebrile Pupils reacting extraocular movements intact neck supple there was no significant JVD Lungs were clear Abdominal exam no hepatosplenomegaly nontender No cyanosis clubbing or edema Laboratory data as noted above Creatinine down to 1.4 potassium 3.5 magnesium significantly low phosphorous is low as well hemoglobin is 8 same as before INR was 1.7 initial INR was 3.25. Patient has had 1 unit of PRBCs and 2 FFP so far. IMPRESSION This is an elderly lady with atrial fibrillation on warfarin, coronary artery disease with remote CABG, hypertension, mild dementia, symptomatic syncope due to significant GI bleed. Patient was hypercoagulable and she came in. She also has chronic kidney disease with mild kidney injury which seems to be improving. She does have history of hypertension but no NSAID use no known liver disease. She is now clinically stable. PLAN Continue to watch hemoglobin Anticoagulation has been reversed IV PPI Clear liquid diet Endoscopy today No active signs of significant bleeding today Patient is DNR/DNI
[2017-11-19 08:00] VITALS: BP 130/58
[2017-11-19 10:04] LABS: ABSOLUTE BASOPHIL COUNT 0 /CUMM (0.0-0.2); ABSOLUTE EOSINOPHIL COUNT 0 /CUMM (0.0-0.7); ABSOLUTE GRANULOCYTE CT 6.9 /CUMM (1.4-6.5); ABSOLUTE LYMPH COUNT 2.4 /CUMM (1.2-3.4); ABSOLUTE MONOCYTE COUNT 0.7 /CUMM (0.10-0.60); BASOPHIL % 0.1 % (0.0-2.0); EOSINOPHIL % 0.4 % (0-5); HEMATOCRIT 25.1 % (37-47); MEAN CORPUSCULAR HGB 29.1 PG (27.0-31.0); MEAN CORPUSCULAR HGB CONC 33.4 G/DL (33.0-37.0); MEAN CORPUSCULAR VOLUME 87.2 FL (81.0-99.0); MEAN PLATELET VOLUME 10.9 FL (7.4-10.4); PLATELET COUNT 178 /CUMM (130-400); RBC DISTRIBUTION WIDTH 15.3 % (11.5-14.5); RED BLOOD CELL CT 2.88 /CUMM (4.20-5.40)
--- NOTE | 2017-11-19 10:10 | PN- Gastroenterology ---
Assessment/Plan GI Assessment/Recommendations: Upper GI bleed/melena, with blood loss anemia. Continued melena, although decreased; rising BUN. Therefore, probable mild ongoing bleeding (although with continued mild hypernatremia suggesting free water deficit). Appropriate rise in hemoglobin with transfusion of one unit of packed red blood cells. Vital signs stable. INR is in a comfortable rage for endoscopy. She denies GI symptoms. Recommendations * Transfusion 1 more unit of packed red blood cells, and continue to follow CBC every 8 hours. Maintain hemoglobin/hematocrit at greater than 8/24. * The patient requires a second IV line. * IV PPI twice a day * EGD today Subjective Subjective: The patient passed 4 small melenic movements overnight into this morning. No nausea, vomiting, abdominal pain. No dizziness, lightheadedness, syncope, diaphoresis, chest pain, dyspnea. Objective Vital Signs and I&Os Vital Signs Date Time Temp Pulse Resp B/P B/P Pulse O2 O2 Flow FiO2 Mean Ox Delivery Rate 11/19 0800 99.1 63 20 130/58 95 Nasal 2.0L Cannula 11/19 0800 95 Nasal 2.0L Cannula 11/19 0400 98 Nasal 3.0L Cannula 11/19 0000 98 Nasal 3.0L Cannula 06/ 0000 98.6 64 18 114/60 98 Nasal 3.0L Cannula 06/ 1700 98 Nasal 3.0L Cannula 06/02 1700 98.4 67 14 124/64 98 Nasal 4.0L Cannula 06/02 1616 98.2 68 16 146/60 97 Nasal 4.0L Cannula 06/02 1509 98.4 84 22 146/78 99 Room Air 06/02 1348 72 20 127/56 95 Nasal 5.0L Cannula /02 1330 78 24 80/48 84 Room Air 06/02 1310 98.9 75 24 91/51 96 Room Air Intake & Output / 1600 06/03 0400 06/02 1600 06/ 0400 06/ 1600 06/ 0400 Intake Total 450 1000 2000 Output Total 700 250 100 Balance -663 477 0562 Intake, Blood 350 710 Product Intake, IV 452 05 9574 Intake, Oral 200 Number 2 1 Bowel Movements Output, Urine 700 250 100 Patient 192 lb Weight Weight Bed scale Measurement Method Physical Exam: Alert, conversant. Pale. Anicteric. Abdomen nondistended, soft, nontender. No edema. Current Medications: Current Medications Sig/Victoriano Start time Last Medication Dose Route Stop Time Status Admin Acetaminophen 650 MG Q6P PRN 11/18 1645 AC PO Acetaminophen 1,000 MG Q6P PRN 11/18 1645 AC IV Dextrose/Sodium 1,000 ML .[id number] 11/18 1645 DC Chloride IV Lorazepam 50 MG ONCE ONE 11/19 0845 CAN Dextrose/Water 500 ML IV 11/19 0846 Magnesium Sulfate 1 GM Q2H 11/19 0800 CAN Dextrose/Water 100 ML IV 11/19 1159 Magnesium Sulfate 1 GM Q2H 11/19 0515 DC 11/19 Dextrose/Water 100 ML IV 11/19 0914 0824 Nystatin 1 JORDYN TID PRN 11/18 1730 AC 11/18 TOP 2121 Pantoprazole Sodium 40 MG BID 11/18 2100 AC 11/18 IV 2121 Pantoprazole Sodium 0 .STK-MED ONE 11/18 1435 DC IV Pantoprazole Sodium 80 MG ONCE ONE 11/18 1400 DC 11/18 IV 11/18 1401 1439 Phytonadione 0 .STK-MED ONE 11/18 1436 DC .ROUTE Phytonadione 10 MG ONCE ONE 11/18 1400 DC 06/02 IM 11/18 1401 1439 Potassium Chloride 10 MEQ Q1H 11/19 0800 DC IV 11/19 0901 Results Pertinent Lab Results: Laboratory Tests 11/19 11/19 0940 0330 Chemistry Sodium (137 - 145 mmol/L) 146 H Potassium (3.5 - 5.1 mmol/L) 3.5 Chloride (98 - 107 mmol/L) 111 H Carbon Dioxide (22 - 30 mmol/L) 23 Anion Gap (5 - 16) 11 BUN (7 - 17 mg/dL) 55 H Creatinine (0.5 - 1.0 mg/dL) 1.4 H Estimated GFR (>60 ml/min) 35 L Glucose (65 - 99 mg/dL) 85 Calcium (8.4 - 10.2 mg/dL) 8.2 L Phosphorus (2.5 - 4.5 mg/dL) 2.4 L Magnesium (1.6 - 2.3 mg/dL) 1.3 L Total Bilirubin (0.2 - 1.3 mg/dL) 0.6 AST (14 - 36 U/L) 16 ALT (9 - 52 U/L) 23 Troponin I (< 0.11 ng/ml) 0.03 Albumin (3.5 - 5.0 g/dL) 3.0 L Coagulation PT (9.4 - 12.5 SEC) 19.2 H INR (0.90 - 1.19) 1.75 H Hematology CBC w Diff Pending NO MAN DIFF REQ WBC (4.8 - 10.8 /CUMM) Pending 9.0 RBC (4.20 - 5.40 /CUMM) Pending 2.74 L Hgb (12.0 - 16.0 G/DL) Pending 8.0 L Hct (37 - 47 %) Pending 23.9 L MCV (81.0 - 99.0 FL) Pending 87.2 MCH (27.0 - 31.0 PG) Pending 29.3 MCHC (33.0 - 37.0 G/DL) Pending 33.5 RDW (11.5 - 14.5 %) Pending 14.9 H Plt Count (130 - 400 /CUMM) Pending 155 MPV (7.4 - 10.4 FL) Pending 11.0 H Gran % (42.2 - 75.2 %) 66.1 Lymphocytes % (20.5 - 51.1 %) 26.2 Monocytes % (1.7 - 9.3 %) 6.4 Eosinophils % (0 - 5 %) 0.3 Basophils % (0.0 - 2.0 %) 1.0 Absolute Granulocytes (1.4 - 6.5 /CUMM) 5.9 Absolute Lymphocytes (1.2 - 3.4 /CUMM) 2.3 Absolute Monocytes (0.10 - 0.60 /CUMM) 0.6 Absolute Eosinophils (0.0 - 0.7 /CUMM) 0 Absolute Basophils (0.0 - 0.2 /CUMM) 0.1 06/02 06/02 06/02 2100 1700 1450 Chemistry Lactic Acid (0.7 - 2.1 mmol/L) 1.2 1.9 2.1 Troponin I (< 0.11 ng/ml) 0.01 Hematology CBC w Diff NO MAN DIFF REQ WBC (4.8 - 10.8 /CUMM) 9.1 RBC (4.20 - 5.40 /CUMM) 2.92 L Hgb (12.0 - 16.0 G/DL) 8.4 L Hct (37 - 47 %) 25.5 L MCV (81.0 - 99.0 FL) 87.4 MCH (27.0 - 31.0 PG) 28.9 MCHC (33.0 - 37.0 G/DL) 33.1 RDW (11.5 - 14.5 %) 14.8 H Plt Count (130 - 400 /CUMM) 162 MPV (7.4 - 10.4 FL) 11.0 H Gran % (42.2 - 75.2 %) 77.2 H Lymphocytes % (20.5 - 51.1 %) 17.7 L Monocytes % (1.7 - 9.3 %) 4.6 Eosinophils % (0 - 5 %) 0.1 Basophils % (0.0 - 2.0 %) 0.4 Absolute Granulocytes (1.4 - 6.5 /CUMM) 7.0 H Absolute Lymphocytes (1.2 - 3.4 /CUMM) 1.6 Absolute Monocytes (0.10 - 0.60 /CUMM) 0.4 Absolute Eosinophils (0.0 - 0.7 /CUMM) 0 Absolute Basophils (0.0 - 0.2 /CUMM) 0 06/02 06/02 1450 1317 Chemistry Sodium (137 - 145 mmol/L) 146 H Potassium (3.5 - 5.1 mmol/L) 3.9 Chloride (98 - 107 mmol/L) 114 H Carbon Dioxide (22 - 30 mmol/L) 20 L Anion Gap (5 - 16) 12 BUN (7 - 17 mg/dL) 34 H Creatinine (0.5 - 1.0 mg/dL) 1.5 H Estimated GFR (>60 ml/min) 33 L BUN/Creatinine Ratio (7 - 25 %) 22.7 Glucose (65 - 99 mg/dL) 114 H Calcium (8.4 - 10.2 mg/dL) 7.5 L Total Bilirubin (0.2 - 1.3 mg/dL) 0.3 AST (14 - 36 U/L) 13 L ALT (9 - 52 U/L) 18 Alkaline Phosphatase (<127 U/L) 49 Troponin I (< 0.11 ng/ml) < 0.01 Cancelled Total Protein (6.3 - 8.2 g/dL) 4.8 L Albumin (3.5 - 5.0 g/dL) 2.5 L Globulin (1.9 - 4.2 gm/dL) 2.3 Albumin/Globulin Ratio (1.1 - 2.2 %) 1.1 Coagulation PT (9.4 - 12.5 SEC) 35.9 H INR (0.90 - 1.19) 3.25 H APTT (25 - 37 SEC) 30 Cancelled Hematology CBC w Diff NO MAN DIFF REQ WBC (4.8 - 10.8 /CUMM) 9.4 RBC (4.20 - 5.40 /CUMM) 2.59 L Hgb (12.0 - 16.0 G/DL) 7.6 L Hct (37 - 47 %) 22.8 L MCV (81.0 - 99.0 FL) 87.9 MCH (27.0 - 31.0 PG) 29.1 MCHC (33.0 - 37.0 G/DL) 33.1 RDW (11.5 - 14.5 %) 15.3 H Plt Count (130 - 400 /CUMM) 200 MPV (7.4 - 10.4 FL) 10.8 H Gran % (42.2 - 75.2 %) 87.2 H Lymphocytes % (20.5 - 51.1 %) 8.6 L Monocytes % (1.7 - 9.3 %) 4.1 Eosinophils % (0 - 5 %) 0 Basophils % (0.0 - 2.0 %) 0.1 Absolute Granulocytes (1.4 - 6.5 /CUMM) 8.2 H Absolute Lymphocytes (1.2 - 3.4 /CUMM) 0.8 L Absolute Monocytes (0.10 - 0.60 /CUMM) 0.4 Absolute Eosinophils (0.0 - 0.7 /CUMM) 0 Absolute Basophils (0.0 - 0.2 /CUMM) 0 Imaging/Other Studies: Cardiogram, preliminary, preserved EF.
--- NOTE | 2017-11-19 11:48 | Procedure ---
Minor Surgical Procedure Note Date of Procedure: 11/19/17 Procedure Note: right internal jujular iv access placed due to poor peripheral access. Using ultrasound guidance, under local anesthesia, right ij was identified and accessed percutaneously. placement of central venous cather was performed using sterile seldinger technique without immediate complication. all ports flush and aspriate. CXR pending.
--- NOTE | 2017-11-19 12:49 | RADIOLOGY REPORT ---
EXAMINATION: XR PORTABLE CHEST CLINICAL INFORMATION: Central line placement. COMPARISON: Chest x-ray from 11/18/2017. TECHNIQUE: Portable frontal view of the chest was obtained. FINDINGS: A right-sided central venous line is in place which terminates at the caval-atrial junction. No new airspace opacities are seen. There is question of a small left-sided pleural effusion. The cardiomediastinal silhouette is stable with atherosclerotic calcification at the arch segment. Postsurgical changes and sternotomy wires in place. Reported left-sided rib fractures on the prior study are difficult to visualize on the current examination. IMPRESSION: Central venous line with the distal tip projecting over the cavoatrial junction. No additional new findings.
--- NOTE | 2017-11-19 13:16 | Procedure ---
Minor Surgical Procedure Note Date of Procedure: 11/19/17 Procedure Note: A time-out was completed prior to procedure. Line placement was supervised by Dr. Almanzar. The patient was placed in trendelenburg for right IJ central line access. The right lateral neck was prepped and drapped in sterile fasion. landmarks identified with US guidance. lidocaine 1% plain was used to anesthetize the skin. A triple luman catheter was placed into the internal jugular using the Seldinger technique and under ultrasound guidance. The catheter was guided smoothly over the wire and appriopriate blood return was obtained. each lumen of the catheter was flushed, the catheter was secured using 3-0 silk sure -[address]. A dry sterile dressing was applied, Patient tolarated the procedure well and chest x-ray is pending placemnt for use.
--- NOTE | 2017-11-19 14:13 | Proc Note Endoscopy ---
Endoscopy Procedure Procedure Date: 11/19/17 Procedure Type: EGD with cautery Digital Specialist: Mic Rivero M.D. ASA Classification: III Indications: Melena, blood loss anemia Instrument: diagnostic gastroscope Meds Received: KRISTIN Patient's Tolerance: good Complications: none Extent Reached: third part of duodenum Procedure: Informed consent was obtained from the patient's daughter, Jennfier Coker. The patient was medicated. Lidocaine pharyngeal spray was administered. Pulse oximetry, blood pressure and cardiac monitoring were performed continuously throughout the procedure. The Olympus high-definition gastroscope was inserted into the mouth and advanced to the duodenum. Retroflexion was performed within the stomach to examine the cardia. Careful examination was performed. Findings: The esophagus had normal caliber and contour. The mucosa was normal throughout. There were no varices, although there were prominent submucosal vessels distally. There was no blood in the esophagus. The GE junction at 40 cm was normal. There was no hiatal hernia. The stomach had normal distention, and active peristalsis. The cardia was normal. Mucosa and folds the fundus and body were normal. There were several tiny fundic polyps, left intact. There were no varices, nor gastropathy. There was fresh blood in the proximal antrum. When washed, this revealed a Dieulafoy' s lesion: a subcentimeter area of raised mucosa on the greater curvature, with central indentation/erosion, with fresh blood at its surface. The remainder of the antrum was normal. There were no other erosions or ulcers. The pyloric channel was normal. The duodenal bulb was normal, without erosion, ulceration, deformity or nodularity. The mucosa and folds of the second and third portions of the duodenum were normal. Epinephrine was injected into 2 sites of the antral lesion (on initial contact with the needle, active bleeding ensued). The lesion was cauterized using 25 W bipolar current via a Gold probe. With initial cautery there was continued and at some points increased bleeding. With further, deeper cautery and tissue ablation, hemostasis was achieved. Impression: * Antral Dieulafoy's lesion, cauterized Recommendations: * Pantoprazole 80 mg IV bolus followed by 8 mg per hour infusion * Nothing by mouth for 2 hours, followed by a clear liquid diet * CBC twice daily; transfuse as needed to maintain hemoglobin greater than 8 * No anticoagulation; check INR in the morning CC: Zambrano MD,Clare
[2017-11-19 16:00] VITALS: BP 140/60
[2017-11-19 20:53] LABS: ABSOLUTE BASOPHIL COUNT 0 /CUMM (0.0-0.2); ABSOLUTE EOSINOPHIL COUNT 0.1 /CUMM (0.0-0.7); ABSOLUTE GRANULOCYTE CT 6.7 /CUMM (1.4-6.5); ABSOLUTE LYMPH COUNT 1.8 /CUMM (1.2-3.4); ABSOLUTE MONOCYTE COUNT 0.5 /CUMM (0.10-0.60); BASOPHIL % 0.2 % (0.0-2.0); EOSINOPHIL % 0.8 % (0-5); GRANULOCYTE % 73.2 % (42.2-75.2); HEMATOCRIT 25.6 % (37-47); MEAN CORPUSCULAR HGB 28.8 PG (27.0-31.0); MEAN CORPUSCULAR VOLUME 87.3 FL (81.0-99.0); MEAN PLATELET VOLUME 10.8 FL (7.4-10.4); PLATELET COUNT 161 /CUMM (130-400); RBC DISTRIBUTION WIDTH 15.9 % (11.5-14.5); RED BLOOD CELL CT 2.93 /CUMM (4.20-5.40); WHITE BLOOD CELL COUNT 9.1 /CUMM (4.8-10.8)
[2017-11-20] VITALS: BP 120/60
[2017-11-20 05:45] LABS: ABSOLUTE BASOPHIL COUNT 0 /CUMM (0.0-0.2); ABSOLUTE EOSINOPHIL COUNT 0.2 /CUMM (0.0-0.7); ABSOLUTE GRANULOCYTE CT 5.7 /CUMM (1.4-6.5); ABSOLUTE LYMPH COUNT 1.5 /CUMM (1.2-3.4); ABSOLUTE MONOCYTE COUNT 0.4 /CUMM (0.10-0.60); BASOPHIL % 0.4 % (0.0-2.0); GRANULOCYTE % 72.5 % (42.2-75.2); MEAN CORPUSCULAR VOLUME 87.9 FL (81.0-99.0); MEAN PLATELET VOLUME 10.5 FL (7.4-10.4); PLATELET COUNT 154 /CUMM (130-400); RBC DISTRIBUTION WIDTH 15.5 % (11.5-14.5); RED BLOOD CELL CT 2.74 /CUMM (4.20-5.40); WHITE BLOOD CELL COUNT 7.8 /CUMM (4.8-10.8)
--- NOTE | 2017-11-20 07:25 | PN- Resident CRCU ---
Subjective HPI/CRCU Issues: No acute events overnight. Patient sleeping this AM. Severeal BM since y-day, did not check for blood. No N/v or abd pain. Objective Vital Signs & I&O Last 8 Hrs of Vitals and I&O: Laboratory Tests 11/20/17 0511: Anion Gap 8, Estimated GFR 35 L, Glucose 91, Calcium 8.6, Phosphorus 2.8, Magnesium 1.9, Total Bilirubin 0.8, AST 16, ALT 23, Albumin 2.7 L, PT 14.0 H, INR 1.28 H, CBC w Diff NO MAN DIFF REQ, RBC 2.74 L, MCV 87.9, MCH 29.0, MCHC 33.0, RDW 15.5 H, MPV 10.5 H, Gran % 72.5, Lymphocytes % 19.6 L, Monocytes % 5.5, Eosinophils % 2.0, Basophils % 0.4, Absolute Granulocytes 5.7, Absolute Lymphocytes 1.5, Absolute Monocytes 0.4, Absolute Eosinophils 0.2, Absolute Basophils 0 11/19/17 2020: CBC w Diff NO MAN DIFF REQ, RBC 2.93 L, MCV 87.3, MCH 28.8, MCHC 33.0, RDW 15.9 H, MPV 10.8 H, Gran % 73.2, Lymphocytes % 20.0 L, Monocytes % 5.8, Eosinophils % 0.8, Basophils % 0.2, Absolute Granulocytes 6.7 H, Absolute Lymphocytes 1.8, Absolute Monocytes 0.5, Absolute Eosinophils 0.1, Absolute Basophils 0 Vital Signs Date Time Temp Pulse Resp B/P B/P Pulse O2 O2 Flow FiO2 Mean Ox Delivery Rate 11/20 0400 94 Nasal 2.0L Cannula Exam General Appearance: no apparent distress, alert, awake, obese Respiratory: anterior breath sounds clear Cardiovascular: regular rate/rhythm, systolic murmur Gastrointestinal: normal bowel sounds, soft, non-tender Extremities: trace LLE, 2+ radial pulses Current Medications: Current Medications Sig/Victoriano Start time Last Medication Dose Route Stop Time Status Admin Acetaminophen 650 MG Q6P PRN 11/18 1645 AC PO Acetaminophen 1,000 MG Q6P PRN 11/18 1645 AC IV Magnesium Sulfate 1 GM ONCE ONE 11/20 0800 AC Dextrose/Water 100 ML IV 11/20 1159 Non-Formulary 0 SEE ADMIN CRITERIA 11/20 1015 DC Medication ANY Nystatin 1 JORDYN TID PRN 11/18 1730 AC 11/18 TOP 2121 Pantoprazole Sodium 40 MG Q5H 11/20 1030 AC Dextrose/Water 100 ML IV Pantoprazole Sodium 40 MG ONE ONE 11/19 1715 DC 11/19 IV 11/19 1716 1708 Pantoprazole Sodium 40 MG Q5H 11/19 1630 DC 11/20 Sodium Chloride 100 ML IV 0609 Pantoprazole Sodium 40 MG BID 11/18 2100 DC 11/19 IV 1259 Potassium Chloride 20 MEQ Q1H 11/19 1300 DC 11/19 IV 11/19 1401 1451 Impression/Plan Impression/Problem List Impression: 87-year-old female with past medical history of atrial fibrillation on Coumadin, coronary artery disease status post CABG (2002, hypertension, dementia BIBA for syncope in the setting of dark stools. Upon arrival her H/H was found to be 7.6/22.8, MCV of 87.9. BUN/creatinine 34/1.5. Electrolytes sodium of 146, potassium of 3.9, chloride of 114, bicarbonate 20. Her albumin was low at 2.5 and total protein 4.8. At the emergency department, she was found to be hypoxic and hypotensive, was given IV fluids and placed on supplemental oxygen. She she was also found to have a supratherapeutic INR and active bleeding therefore was given FFP and vitamin K. It was also revealed that patient had a similar episode 25 years ago due to bleeding from a stomach polyp. She had P: Respiratory: Infectious disease Cardiology: #Syncope with fall Most likely secondary to hypotension due to GI bleed. Patient was found to have an episode of syncope on the commode in the ED. #atrial fibrillation on anticoagulation. #coronary artery disease status post CABG. #hypertension. * B/p , heart rate stable, continue to monitor on tele, watch BP closely, ct iv hydration, ct to hold all antihtn, cardiac and AC meds. * syncope 2/2 to low blood volume 2/2 to blood loss. * will have EGd today. * Rate under control, ct to monitor. Hematology #acute blood loss anemia, probable source GI. #supratherapeutic INR. * continue to monitor H/H with the goal of hemoglobin above 8, am labs stable hgb - 8.4 * will transfuse one more unit prior to procedure. * After FFP and Vit k , INR 1.75, improved nicely, okay to proceed with GI procedure. * ct to monitor CBC * source most likely GI, will follow endoscopy results. Metabolic * hypokalemia/hypermagnesemia * replete as needed and ct to monitor * Keep Mg > 2 and K > 4 Alimentary/ GI * NPo now * Guaiac positive stools * endoscopy planned today * ct iv PPI Neurology #Dementia. * Reorientation , avoid anticholinergics, dehydration,however she understands questions and answers relevantly today morning when talked about central line procedure, however consent was also obtained from daughters. Nephrology #Acute kidney injury. * prerenal 2/2 to volume loss * ct to monitor, iv hydration, avoid nephrotoxins. Plan DVT/Prophylaxis: pharmacological
[2017-11-20 08:00] VITALS: BP 135/59
--- NOTE | 2017-11-20 08:38 | PN- Gastroenterology ---
Assessment/Plan GI Assessment/Recommendations: UGI bleed secondary to gastric Dieulafoy's lesion, cauterized. No evidence of rebleeding at this time. Hematocrit stable. Vital signs normal. Recommendations * Continue pantoprazole 8 mg per hour infusion * Advance to full liquid diet * CBC twice daily; transfuse as needed to maintain hemoglobin greater than 8 * Do not re-anticoagulate at this time * May transfer out of ICU Subjective Subjective: Sleepy. No abdominal pain or nausea. Passed a small black bowel movement according to RN. No gross blood per rectum. Objective Vital Signs and I&Os Vital Signs Date Time Temp Pulse Resp B/P B/P Pulse O2 O2 Flow FiO2 Mean Ox Delivery Rate 11/20 0400 94 Nasal 2.0L Cannula 11/20 0000 95 Nasal 2.0L Cannula 11/20 0000 97.6 64 29 120/60 95 Nasal 2.0L Cannula 11/19 2000 96 Nasal 2.0L Cannula 11/19 1600 96 Nasal 2.0L Cannula 11/19 1600 98.4 74 20 140/60 96 Nasal 2.0L Cannula 11/19 1200 95 Nasal 2.0L Cannula Intake & Output 11/20 1600 11/20 0400 11/19 1600 11/19 0400 11/18 1600 11/18 0400 Intake Total 157 807 847 9319 2000 Output Total 857 418 0588 250 100 Balance -278 -306 -963 230 6834 Intake, Blood 70 540 710 Product Intake, IV 157 284 379 94 4017 Intake, Oral 200 Number 3 7 2 1 Bowel Movements Output, Urine 357 452 3185 250 100 Patient 192 lb Weight Weight Bed scale Measurement Method Physical Exam: Sclera anicteric. Abdomen obese, soft, nondistended, nontender. Current Medications: Current Medications Sig/Victoriano Start time Last Medication Dose Route Stop Time Status Admin Acetaminophen 650 MG Q6P PRN 11/18 1645 AC PO Acetaminophen 1,000 MG Q6P PRN 11/18 1645 AC IV Lorazepam 50 MG ONCE ONE 11/19 0845 CAN Dextrose/Water 500 ML IV 11/19 0846 Magnesium Sulfate 1 GM ONCE ONE 11/20 0800 AC Dextrose/Water 100 ML IV 11/20 1159 Magnesium Sulfate 1 GM Q2H 11/19 0515 DC 11/19 Dextrose/Water 100 ML IV 11/19 0914 0824 Nystatin 1 JORDYN TID PRN 11/18 1730 AC 11/18 TOP 2121 Pantoprazole Sodium 40 MG ONE ONE 11/19 1715 DC 11/19 IV 11/19 1716 1708 Pantoprazole Sodium 40 MG Q5H 11/19 1630 AC 11/20 Sodium Chloride 100 ML IV 0609 Pantoprazole Sodium 40 MG BID 11/18 2100 DC 11/19 IV 1259 Potassium Chloride 20 MEQ Q1H 11/19 1300 DC 11/19 IV 11/19 1401 1451 Potassium Chloride 10 MEQ Q1H 11/19 0800 DC IV 11/19 0901 Results Pertinent Lab Results: Laboratory Tests 11/20 11/19 05 2020 Chemistry Sodium (137 - 145 mmol/L) 150 H Potassium (3.5 - 5.1 mmol/L) 3.5 Chloride (98 - 107 mmol/L) 116 H Carbon Dioxide (22 - 30 mmol/L) 26 Anion Gap (5 - 16) 8 BUN (7 - 17 mg/dL) 38 H Creatinine (0.5 - 1.0 mg/dL) 1.4 H Estimated GFR (>60 ml/min) 35 L Glucose (65 - 99 mg/dL) 91 Calcium (8.4 - 10.2 mg/dL) 8.6 Phosphorus (2.5 - 4.5 mg/dL) 2.8 Magnesium (1.6 - 2.3 mg/dL) 1.9 Total Bilirubin (0.2 - 1.3 mg/dL) 0.8 AST (14 - 36 U/L) 16 ALT (9 - 52 U/L) 23 Albumin (3.5 - 5.0 g/dL) 2.7 L Coagulation PT (9.4 - 12.5 SEC) 14.0 H INR (0.90 - 1.19) 1.28 H Hematology CBC w Diff NO MAN DIFF REQ NO MAN DIFF REQ WBC (4.8 - 10.8 /CUMM) 7.8 9.1 RBC (4.20 - 5.40 /CUMM) 2.74 L 2.93 L Hgb (12.0 - 16.0 G/DL) 7.9 L 8.4 L Hct (37 - 47 %) 24.0 L 25.6 L MCV (81.0 - 99.0 FL) 87.9 87.3 MCH (27.0 - 31.0 PG) 29.0 28.8 MCHC (33.0 - 37.0 G/DL) 33.0 33.0 RDW (11.5 - 14.5 %) 15.5 H 15.9 H Plt Count (130 - 400 /CUMM) 154 161 MPV (7.4 - 10.4 FL) 10.5 H 10.8 H Gran % (42.2 - 75.2 %) 72.5 73.2 Lymphocytes % (20.5 - 51.1 %) 19.6 L 20.0 L Monocytes % (1.7 - 9.3 %) 5.5 5.8 Eosinophils % (0 - 5 %) 2.0 0.8 Basophils % (0.0 - 2.0 %) 0.4 0.2 Absolute Granulocytes (1.4 - 6.5 /CUMM) 5.7 6.7 H Absolute Lymphocytes (1.2 - 3.4 /CUMM) 1.5 1.8 Absolute Monocytes (0.10 - 0.60 /CUMM) 0.4 0.5 Absolute Eosinophils (0.0 - 0.7 /CUMM) 0.2 0.1 Absolute Basophils (0.0 - 0.2 /CUMM) 0 0 06/03 06/03 0940 0330 Chemistry Sodium (137 - 145 mmol/L) 146 H Potassium (3.5 - 5.1 mmol/L) 3.5 Chloride (98 - 107 mmol/L) 111 H Carbon Dioxide (22 - 30 mmol/L) 23 Anion Gap (5 - 16) 11 BUN (7 - 17 mg/dL) 55 H Creatinine (0.5 - 1.0 mg/dL) 1.4 H Estimated GFR (>60 ml/min) 35 L Glucose (65 - 99 mg/dL) 85 Calcium (8.4 - 10.2 mg/dL) 8.2 L Phosphorus (2.5 - 4.5 mg/dL) 2.4 L Magnesium (1.6 - 2.3 mg/dL) 1.3 L Total Bilirubin (0.2 - 1.3 mg/dL) 0.6 AST (14 - 36 U/L) 16 ALT (9 - 52 U/L) 23 Troponin I (< 0.11 ng/ml) 0.03 Albumin (3.5 - 5.0 g/dL) 3.0 L Coagulation PT (9.4 - 12.5 SEC) 19.2 H INR (0.90 - 1.19) 1.75 H Hematology CBC w Diff NO MAN DIFF REQ NO MAN DIFF REQ WBC (4.8 - 10.8 /CUMM) 10.0 9.0 RBC (4.20 - 5.40 /CUMM) 2.88 L 2.74 L Hgb (12.0 - 16.0 G/DL) 8.4 L 8.0 L Hct (37 - 47 %) 25.1 L 23.9 L MCV (81.0 - 99.0 FL) 87.2 87.2 MCH (27.0 - 31.0 PG) 29.1 29.3 MCHC (33.0 - 37.0 G/DL) 33.4 33.5 RDW (11.5 - 14.5 %) 15.3 H 14.9 H Plt Count (130 - 400 /CUMM) 178 155 MPV (7.4 - 10.4 FL) 10.9 H 11.0 H Gran % (42.2 - 75.2 %) 69.0 66.1 Lymphocytes % (20.5 - 51.1 %) 23.8 26.2 Monocytes % (1.7 - 9.3 %) 6.7 6.4 Eosinophils % (0 - 5 %) 0.4 0.3 Basophils % (0.0 - 2.0 %) 0.1 1.0 Absolute Granulocytes (1.4 - 6.5 /CUMM) 6.9 H 5.9 Absolute Lymphocytes (1.2 - 3.4 /CUMM) 2.4 2.3 Absolute Monocytes (0.10 - 0.60 /CUMM) 0.7 H 0.6 Absolute Eosinophils (0.0 - 0.7 /CUMM) 0 0 Absolute Basophils (0.0 - 0.2 /CUMM) 0 0.1 06/02 06/02 06/02 2100 1700 1450 Chemistry Lactic Acid (0.7 - 2.1 mmol/L) 1.2 1.9 2.1 Troponin I (< 0.11 ng/ml) 0.01 Hematology CBC w Diff NO MAN DIFF REQ WBC (4.8 - 10.8 /CUMM) 9.1 RBC (4.20 - 5.40 /CUMM) 2.92 L Hgb (12.0 - 16.0 G/DL) 8.4 L Hct (37 - 47 %) 25.5 L MCV (81.0 - 99.0 FL) 87.4 MCH (27.0 - 31.0 PG) 28.9 MCHC (33.0 - 37.0 G/DL) 33.1 RDW (11.5 - 14.5 %) 14.8 H Plt Count (130 - 400 /CUMM) 162 MPV (7.4 - 10.4 FL) 11.0 H Gran % (42.2 - 75.2 %) 77.2 H Lymphocytes % (20.5 - 51.1 %) 17.7 L Monocytes % (1.7 - 9.3 %) 4.6 Eosinophils % (0 - 5 %) 0.1 Basophils % (0.0 - 2.0 %) 0.4 Absolute Granulocytes (1.4 - 6.5 /CUMM) 7.0 H Absolute Lymphocytes (1.2 - 3.4 /CUMM) 1.6 Absolute Monocytes (0.10 - 0.60 /CUMM) 0.4 Absolute Eosinophils (0.0 - 0.7 /CUMM) 0 Absolute Basophils (0.0 - 0.2 /CUMM) 0 06/02 06/02 1450 1317 Chemistry Sodium (137 - 145 mmol/L) 146 H Potassium (3.5 - 5.1 mmol/L) 3.9 Chloride (98 - 107 mmol/L) 114 H Carbon Dioxide (22 - 30 mmol/L) 20 L Anion Gap (5 - 16) 12 BUN (7 - 17 mg/dL) 34 H Creatinine (0.5 - 1.0 mg/dL) 1.5 H Estimated GFR (>60 ml/min) 33 L BUN/Creatinine Ratio (7 - 25 %) 22.7 Glucose (65 - 99 mg/dL) 114 H Calcium (8.4 - 10.2 mg/dL) 7.5 L Total Bilirubin (0.2 - 1.3 mg/dL) 0.3 AST (14 - 36 U/L) 13 L ALT (9 - 52 U/L) 18 Alkaline Phosphatase (<127 U/L) 49 Troponin I (< 0.11 ng/ml) < 0.01 Cancelled Total Protein (6.3 - 8.2 g/dL) 4.8 L Albumin (3.5 - 5.0 g/dL) 2.5 L Globulin (1.9 - 4.2 gm/dL) 2.3 Albumin/Globulin Ratio (1.1 - 2.2 %) 1.1 Coagulation PT (9.4 - 12.5 SEC) 35.9 H INR (0.90 - 1.19) 3.25 H APTT (25 - 37 SEC) 30 Cancelled Hematology CBC w Diff NO MAN DIFF REQ WBC (4.8 - 10.8 /CUMM) 9.4 RBC (4.20 - 5.40 /CUMM) 2.59 L Hgb (12.0 - 16.0 G/DL) 7.6 L Hct (37 - 47 %) 22.8 L MCV (81.0 - 99.0 FL) 87.9 MCH (27.0 - 31.0 PG) 29.1 MCHC (33.0 - 37.0 G/DL) 33.1 RDW (11.5 - 14.5 %) 15.3 H Plt Count (130 - 400 /CUMM) 200 MPV (7.4 - 10.4 FL) 10.8 H Gran % (42.2 - 75.2 %) 87.2 H Lymphocytes % (20.5 - 51.1 %) 8.6 L Monocytes % (1.7 - 9.3 %) 4.1 Eosinophils % (0 - 5 %) 0 Basophils % (0.0 - 2.0 %) 0.1 Absolute Granulocytes (1.4 - 6.5 /CUMM) 8.2 H Absolute Lymphocytes (1.2 - 3.4 /CUMM) 0.8 L Absolute Monocytes (0.10 - 0.60 /CUMM) 0.4 Absolute Eosinophils (0.0 - 0.7 /CUMM) 0 Absolute Basophils (0.0 - 0.2 /CUMM) 0
--- NOTE | 2017-11-20 09:48 | PN- Pulmonary ---
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 No evidence of rebleeding at this time. Hematocrit stable. Vital signs normal. Recommendations * Continue pantoprazole 8 mg per hour infusion * Advance to full liquid diet * CBC twice daily; transfuse as needed to maintain hemoglobin greater than 8 * Do not re-anticoagulate at this time * May transfer out of ICU Objective Current Medications: Current Medications Sig/Victoriano Start time Last Medication Dose Route Stop Time Status Admin Acetaminophen 650 MG Q6P PRN 11/18 1645 AC PO Acetaminophen 1,000 MG Q6P PRN 11/18 1645 AC IV Magnesium Sulfate 1 GM ONCE ONE 11/20 0800 AC Dextrose/Water 100 ML IV 11/20 1159 Nystatin 1 JORDYN TID PRN 11/18 1730 AC 11/18 TOP 2121 Pantoprazole Sodium 40 MG ONE ONE 11/19 1715 DC 11/19 IV 11/19 1716 1708 Pantoprazole Sodium 40 MG Q5H 11/19 1630 AC 11/20 Sodium Chloride 100 ML IV 0609 Pantoprazole Sodium 40 MG BID 11/18 2100 DC 11/19 IV 1259 Potassium Chloride 20 MEQ Q1H 11/19 1300 DC 11/19 IV 11/19 1401 1451 Vital Signs & I&O Last 24 Hrs of Vitals and I&O: Vital Signs Date Time Temp Pulse Resp B/P B/P Pulse O2 O2 Flow FiO2 Mean Ox Delivery Rate 11/20 0400 94 Nasal 2.0L Cannula 11/20 0000 95 Nasal 2.0L Cannula 11/20 0000 97.6 64 29 120/60 95 Nasal 2.0L Cannula 11/19 2000 96 Nasal 2.0L Cannula 11/19 1600 96 Nasal 2.0L Cannula 11/19 1600 98.4 74 20 140/60 96 Nasal 2.0L Cannula 11/19 1200 95 Nasal 2.0L Cannula Intake & Output 11/20 1600 04 0800 11/20 0000 Intake Total 157 354 Output Total 435 660 Balance -278 -306 Intake, Blood 70 Product Intake, IV 157 284 Number 3 7 Bowel Movements Output, Urine 435 660 Laboratory Tests 11/20 Chemistry Sodium (137 - 145 mmol/L) 150 H Potassium (3.5 - 5.1 mmol/L) 3.5 Chloride (98 - 107 mmol/L) 116 H Carbon Dioxide (22 - 30 mmol/L) 26 Anion Gap (5 - 16) 8 BUN (7 - 17 mg/dL) 38 H Creatinine (0.5 - 1.0 mg/dL) 1.4 H Estimated GFR (>60 ml/min) 35 L Glucose (65 - 99 mg/dL) 91 Calcium (8.4 - 10.2 mg/dL) 8.6 Phosphorus (2.5 - 4.5 mg/dL) 2.8 Magnesium (1.6 - 2.3 mg/dL) 1.9 Total Bilirubin (0.2 - 1.3 mg/dL) 0.8 AST (14 - 36 U/L) 16 ALT (9 - 52 U/L) 23 Albumin (3.5 - 5.0 g/dL) 2.7 L Coagulation PT (9.4 - 12.5 SEC) 14.0 H INR (0.90 - 1.19) 1.28 H Hematology CBC w Diff NO MAN DIFF REQ NO MAN DIFF REQ WBC (4.8 - 10.8 /CUMM) 7.8 9.1 RBC (4.20 - 5.40 /CUMM) 2.74 L 2.93 L Hgb (12.0 - 16.0 G/DL) 7.9 L 8.4 L Hct (37 - 47 %) 24.0 L 25.6 L MCV (81.0 - 99.0 FL) 87.9 87.3 MCH (27.0 - 31.0 PG) 29.0 28.8 MCHC (33.0 - 37.0 G/DL) 33.0 33.0 RDW (11.5 - 14.5 %) 15.5 H 15.9 H Plt Count (130 - 400 /CUMM) 154 161 MPV (7.4 - 10.4 FL) 10.5 H 10.8 H Gran % (42.2 - 75.2 %) 72.5 73.2 Lymphocytes % (20.5 - 51.1 %) 19.6 L 20.0 L Monocytes % (1.7 - 9.3 %) 5.5 5.8 Eosinophils % (0 - 5 %) 2.0 0.8 Basophils % (0.0 - 2.0 %) 0.4 0.2 Absolute Granulocytes (1.4 - 6.5 /CUMM) 5.7 6.7 H Absolute Lymphocytes (1.2 - 3.4 /CUMM) 1.5 1.8 Absolute Monocytes (0.10 - 0.60 /CUMM) 0.4 0.5 Absolute Eosinophils (0.0 - 0.7 /CUMM) 0.2 0.1 Absolute Basophils (0.0 - 0.2 /CUMM) 0 0 11/19 11/19 0940 0330 Chemistry Sodium (137 - 145 mmol/L) 146 H Potassium (3.5 - 5.1 mmol/L) 3.5 Chloride (98 - 107 mmol/L) 111 H Carbon Dioxide (22 - 30 mmol/L) 23 Anion Gap (5 - 16) 11 BUN (7 - 17 mg/dL) 55 H Creatinine (0.5 - 1.0 mg/dL) 1.4 H Estimated GFR (>60 ml/min) 35 L Glucose (65 - 99 mg/dL) 85 Calcium (8.4 - 10.2 mg/dL) 8.2 L Phosphorus (2.5 - 4.5 mg/dL) 2.4 L Magnesium (1.6 - 2.3 mg/dL) 1.3 L Total Bilirubin (0.2 - 1.3 mg/dL) 0.6 AST (14 - 36 U/L) 16 ALT (9 - 52 U/L) 23 Troponin I (< 0.11 ng/ml) 0.03 Albumin (3.5 - 5.0 g/dL) 3.0 L Coagulation PT (9.4 - 12.5 SEC) 19.2 H INR (0.90 - 1.19) 1.75 H Hematology CBC w Diff NO MAN DIFF REQ NO MAN DIFF REQ WBC (4.8 - 10.8 /CUMM) 10.0 9.0 RBC (4.20 - 5.40 /CUMM) 2.88 L 2.74 L Hgb (12.0 - 16.0 G/DL) 8.4 L 8.0 L Hct (37 - 47 %) 25.1 L 23.9 L MCV (81.0 - 99.0 FL) 87.2 87.2 MCH (27.0 - 31.0 PG) 29.1 29.3 MCHC (33.0 - 37.0 G/DL) 33.4 33.5 RDW (11.5 - 14.5 %) 15.3 H 14.9 H Plt Count (130 - 400 /CUMM) 178 155 MPV (7.4 - 10.4 FL) 10.9 H 11.0 H Gran % (42.2 - 75.2 %) 69.0 66.1 Lymphocytes % (20.5 - 51.1 %) 23.8 26.2 Monocytes % (1.7 - 9.3 %) 6.7 6.4 Eosinophils % (0 - 5 %) 0.4 0.3 Basophils % (0.0 - 2.0 %) 0.1 1.0 Absolute Granulocytes (1.4 - 6.5 /CUMM) 6.9 H 5.9 Absolute Lymphocytes (1.2 - 3.4 /CUMM) 2.4 2.3 Absolute Monocytes (0.10 - 0.60 /CUMM) 0.7 H 0.6 Absolute Eosinophils (0.0 - 0.7 /CUMM) 0 0 Absolute Basophils (0.0 - 0.2 /CUMM) 0 0.1 06/02 06/02 06/02 2100 1700 1450 Chemistry Lactic Acid (0.7 - 2.1 mmol/L) 1.2 1.9 2.1 Troponin I (< 0.11 ng/ml) 0.01 Hematology CBC w Diff NO MAN DIFF REQ WBC (4.8 - 10.8 /CUMM) 9.1 RBC (4.20 - 5.40 /CUMM) 2.92 L Hgb (12.0 - 16.0 G/DL) 8.4 L Hct (37 - 47 %) 25.5 L MCV (81.0 - 99.0 FL) 87.4 MCH (27.0 - 31.0 PG) 28.9 MCHC (33.0 - 37.0 G/DL) 33.1 RDW (11.5 - 14.5 %) 14.8 H Plt Count (130 - 400 /CUMM) 162 MPV (7.4 - 10.4 FL) 11.0 H Gran % (42.2 - 75.2 %) 77.2 H Lymphocytes % (20.5 - 51.1 %) 17.7 L Monocytes % (1.7 - 9.3 %) 4.6 Eosinophils % (0 - 5 %) 0.1 Basophils % (0.0 - 2.0 %) 0.4 Absolute Granulocytes (1.4 - 6.5 /CUMM) 7.0 H Absolute Lymphocytes (1.2 - 3.4 /CUMM) 1.6 Absolute Monocytes (0.10 - 0.60 /CUMM) 0.4 Absolute Eosinophils (0.0 - 0.7 /CUMM) 0 Absolute Basophils (0.0 - 0.2 /CUMM) 0 11/18 11/18 1450 1317 Chemistry Sodium (137 - 145 mmol/L) 146 H Potassium (3.5 - 5.1 mmol/L) 3.9 Chloride (98 - 107 mmol/L) 114 H Carbon Dioxide (22 - 30 mmol/L) 20 L Anion Gap (5 - 16) 12 BUN (7 - 17 mg/dL) 34 H Creatinine (0.5 - 1.0 mg/dL) 1.5 H Estimated GFR (>60 ml/min) 33 L BUN/Creatinine Ratio (7 - 25 %) 22.7 Glucose (65 - 99 mg/dL) 114 H Calcium (8.4 - 10.2 mg/dL) 7.5 L Total Bilirubin (0.2 - 1.3 mg/dL) 0.3 AST (14 - 36 U/L) 13 L ALT (9 - 52 U/L) 18 Alkaline Phosphatase (<127 U/L) 49 Troponin I (< 0.11 ng/ml) < 0.01 Cancelled Total Protein (6.3 - 8.2 g/dL) 4.8 L Albumin (3.5 - 5.0 g/dL) 2.5 L Globulin (1.9 - 4.2 gm/dL) 2.3 Albumin/Globulin Ratio (1.1 - 2.2 %) 1.1 Coagulation PT (9.4 - 12.5 SEC) 35.9 H INR (0.90 - 1.19) 3.25 H APTT (25 - 37 SEC) 30 Cancelled Hematology CBC w Diff NO MAN DIFF REQ WBC (4.8 - 10.8 /CUMM) 9.4 RBC (4.20 - 5.40 /CUMM) 2.59 L Hgb (12.0 - 16.0 G/DL) 7.6 L Hct (37 - 47 %) 22.8 L MCV (81.0 - 99.0 FL) 87.9 MCH (27.0 - 31.0 PG) 29.1 MCHC (33.0 - 37.0 G/DL) 33.1 RDW (11.5 - 14.5 %) 15.3 H Plt Count (130 - 400 /CUMM) 200 MPV (7.4 - 10.4 FL) 10.8 H Gran % (42.2 - 75.2 %) 87.2 H Lymphocytes % (20.5 - 51.1 %) 8.6 L Monocytes % (1.7 - 9.3 %) 4.1 Eosinophils % (0 - 5 %) 0 Basophils % (0.0 - 2.0 %) 0.1 Absolute Granulocytes (1.4 - 6.5 /CUMM) 8.2 H Absolute Lymphocytes (1.2 - 3.4 /CUMM) 0.8 L Absolute Monocytes (0.10 - 0.60 /CUMM) 0.4 Absolute Eosinophils (0.0 - 0.7 /CUMM) 0 Absolute Basophils (0.0 - 0.2 /CUMM) 0 Microbiology Date/Time Procedure - Status Source Growth 11/18 1640 Surveillance Culture - COMP UPPER RESP 11/18 1640 Surveillance Culture - COMP GI Impression/Plan Impression/Plan Impression/Plan: Sleeping Afebrile Pupils reacting extraocular movements intact neck supple there was no significant JVD Lungs were clear Abdominal exam no hepatosplenomegaly nontender No cyanosis clubbing or edema Other data reviewed EGD showed Impression: * Antral Dieulafoy's lesion, cauterized IMPRESSION This is an elderly lady with atrial fibrillation on warfarin, coronary artery disease with remote CABG, hypertension, mild dementia, symptomatic syncope due to significant GI bleed. Patient was hypercoagulable and she came in. She also has chronic kidney disease with mild kidney injury which seems to be improving. She does have history of hypertension but no NSAID use no known liver disease. She is now clinically stable. EGD as noted above PLAN Continue IV PPI Advanced to full liquid diet C BC twice a day keep hemoglobin more than 7.5 No anticoagulation for now per GI Okay to be transferred to the general medical floor No active signs of significant bleeding today Patient is DNR/DNI
--- NOTE | 2017-11-20 10:36 | ECHOCARDIOGRAM REPORT ---
KB DIAZ Age: 87 : 1930 Gender: F Exam Date: 11/19/2017 08:32 Exam Location: [facility] Ht (in): 66 Wt (lb): 170 BSA: 1.91 BP: 114 / 60 Ordering Physician: Jt May MD Referring Physician: Jt May MD Technologist: Mildred Cordero RDCS Room Number: 107 Indications: PRESYNCOPE/SYNCOPE Rhythm: Sinus Technical Quality: Fair FINDINGS Left Ventricle Mild left ventricular dilatation. Normal left ventricular wall thickness with some proximal septal thickening. No obvious regional wall motion abnormalities. Normal left ventricular ejection fraction visually estimated at >55%. Abnormal relaxation filling pattern of the left ventricle for age (stage 1 diastolic dysfunction). Mildly increased resting left ventricular outflow tract velocity (1.4 m/s). Right Ventricle Normal right ventricular size and function. Right Atrium Normal right atrial size. Left Atrium Left atrium mildly dilated. Mitral Valve Mildly calcified mitral valve annulus. Mitral valve mildly thickened. Mild mitral regurgitation. Aortic Valve Trileaflet aortic valve. Diffuse mild thickening of the aortic valve cusps with mildly reduced excursion. No hemodynamically significant aortic stenosis. Trace aortic regurgitation. Tricuspid Valve Structurally normal tricuspid valve. Mild tricuspid regurgitation. Right ventricular systolic pressure estimated at 34 mmHg. Pulmonic Valve Pulmonic valve not well visualized, grossly normal. No pulmonic regurgitation. Pericardium No pericardial effusion. Great Vessels Normal size aortic root. Mildly dilated ascending aorta. Normal size inferior vena cava. CONCLUSIONS Mild left ventricular dilatation. Normal left ventricular ejection fraction visually estimated at > 55%. Abnormal relaxation filling pattern of the left ventricle for age (stage 1 diastolic dysfunction). Mildly increased resting left ventricular outflow tract velocity (1.4 m/s). Normal right ventricular size and function. Normal right atrial size. Left atrium mildly dilated. Mild mitral regurgitation. No hemodynamically significant aortic stenosis. Trace aortic regurgitation. Mild tricuspid regurgitation. Right ventricular systolic pressure estimated at 34 mmHg. Mildly dilated ascending aorta. Chris Blanton M.D. (Electronically Signed) Final Date: 20 November 2017 10:35 MEASUREMENTS (Male / Female) Normal Values 2D ECHO LV Diastolic Diameter PLAX 5.7 cm 4.2 - 5.9 / 3.9 - 5.3 cm LV Systolic Diameter PLAX 3.9 cm 2.1 - 4.0 cm LV Fractional Shortening PLAX 31.6 % 25 - 46 % LV Ejection Fraction 2D Teich 58.8 % IVS Diastolic Thickness 0.9 cm LVPW Diastolic Thickness 1.0 cm LV Relative Wall Thickness 0.3 RV Internal Dim ED PLAX 2.8 cm 1.9 - 3.8 cm LVOT Diameter 1.9 cm Aortic Root Diameter 3.1 cm LA Systolic Diameter LX 4.6 cm 3.0 - 4.0 / 2.7 - 3.8 cm LA Volume 40.0 cm 18 - 58 / 22 - 52 cm Ascending Aorta Diameter 3.4 cm DOPPLER AV Peak Velocity 174.0 cm/s AV Peak Gradient 12.1 mmHg AV Mean Velocity 123.0 cm/s AV Mean Gradient 7.0 mmHg AV Velocity Time Integral 41.6 cm LVOT Peak Velocity 135.0 cm/s LVOT Peak Gradient 7.3 mmHg LVOT Mean Velocity 97.8 cm/s LVOT Mean Gradient 4.0 mmHg LVOT Velocity Time Integral 32.5 cm LVOT Stroke Volume 92.1 cm AV Area Cont Eq vti 2.2 cm AV Area Cont Eq pk 2.2 cm MV Peak Velocity 127.0 cm/s MV Peak Gradient 6.5 mmHg MV Mean Velocity 73.4 cm/s MV Mean Gradient 2.0 mmHg Mitral E Point Velocity 95.3 cm/s Mitral A Point Velocity 103.0 cm/s Mitral E to A Ratio 0.9 MV PHT Velocity 103.0 cm/s MV Deceleration [place] 303.0 cm/s MV Pressure Half Time 102.0 ms MV Area PHT 2.2 cm MV Deceleration Time 182.0 ms TR Peak Velocity 270.0 cm/s TR Peak Gradient 29.2 mmHg Right Atrial Pressure 5.0 mmHg Pulmonary Artery Systolic Pressu 34.2 mmHg Right Ventricular Systolic Press 34.2 mmHg PV Peak Velocity 112.0 cm/s PV Peak Gradient 5.0 mmHg PV Mean Velocity 83.9 cm/s PV Mean Gradient 3.0 mmHg PV Velocity Time Integral 20.6 cm LV E' Lateral Velocity 11.7 cm/s Mitral E to LV E' Lateral Ratio 8.1 LV E' Septal Velocity 8.9 cm/s Mitral E to LV E' Septal Ratio 10.7
--- NOTE | 2017-11-20 10:53 | PN- Housestaff ---
Subjective Follow-up For: GI bleed Dark stools Syncope Subjective: No acute events overnight. Patient sleeping this AM. Severeal BM since y-day, did not check for blood. No N/v or abd pain. Review of Systems Constitutional: Reports: see HPI. Objective Last 24 Hrs of Vital Signs/I&O Vital Signs Date Time Temp Pulse Resp B/P B/P Pulse O2 O2 Flow FiO2 Mean Ox Delivery Rate 11/20 0400 94 Nasal 2.0L Cannula 11/20 0000 95 Nasal 2.0L Cannula 11/20 0000 97.6 64 29 120/60 95 Nasal 2.0L Cannula 11/19 2000 96 Nasal 2.0L Cannula 11/19 1600 96 Nasal 2.0L Cannula 11/19 1600 98.4 74 20 140/60 96 Nasal 2.0L Cannula 11/19 1200 95 Nasal 2.0L Cannula Intake & Output 11/20 1600 11/20 0800 11/20 0000 Intake Total 157 354 Output Total 435 660 Balance -278 -306 Intake, Blood 70 Product Intake, IV 157 284 Number 3 7 Bowel Movements Output, Urine 435 660 Physical Exam General Appearance: Alert, Oriented X3, Cooperative, obese Cardiovascular: Regular Rate, systolic murmur Lungs: Clear to Auscultation, Normal Air Movement Abdomen: Normal Bowel Sounds, Soft, No Tenderness Extremities: 2+ radial pulse, trace LE edema b/l Current Medications: Current Medications Sig/Victoriano Start time Last Medication Dose Route Stop Time Status Admin Acetaminophen 650 MG Q6P PRN 11/18 1645 AC PO Acetaminophen 1,000 MG Q6P PRN 11/18 1645 AC IV Magnesium Sulfate 1 GM ONCE ONE 11/20 0800 AC Dextrose/Water 100 ML IV 11/20 1159 Non-Formulary 0 SEE ADMIN CRITERIA 11/20 1015 DC Medication ANY Nystatin 1 JORDYN TID PRN 11/18 1730 AC / TOP 2121 Pantoprazole Sodium 40 MG Q5H 11/20 1030 AC Dextrose/Water 100 ML IV Pantoprazole Sodium 40 MG ONE ONE 11/19 1715 DC 11/19 IV 11/19 1716 1708 Pantoprazole Sodium 40 MG Q5H 11/19 1630 DC 11/20 Sodium Chloride 100 ML IV 0609 Pantoprazole Sodium 40 MG BID 11/18 2100 DC 11/19 IV 1259 Potassium Chloride 20 MEQ Q1H 11/19 1300 DC 11/19 IV 11/19 1401 1961 Last 24 Hrs of Lab/Georges Results Last 24 Hrs of Labs/Mics: Laboratory Tests 11/20/17 0511: Anion Gap 8, Estimated GFR 35 L, Glucose 91, Calcium 8.6, Phosphorus 2.8, Magnesium 1.9, Total Bilirubin 0.8, AST 16, ALT 23, Albumin 2.7 L, PT 14.0 H, INR 1.28 H, CBC w Diff NO MAN DIFF REQ, RBC 2.74 L, MCV 87.9, MCH 29.0, MCHC 33.0, RDW 15.5 H, MPV 10.5 H, Gran % 72.5, Lymphocytes % 19.6 L, Monocytes % 5.5, Eosinophils % 2.0, Basophils % 0.4, Absolute Granulocytes 5.7, Absolute Lymphocytes 1.5, Absolute Monocytes 0.4, Absolute Eosinophils 0.2, Absolute Basophils 0 11/19/17 2020: CBC w Diff NO MAN DIFF REQ, RBC 2.93 L, MCV 87.3, MCH 28.8, MCHC 33.0, RDW 15.9 H, MPV 10.8 H, Gran % 73.2, Lymphocytes % 20.0 L, Monocytes % 5.8, Eosinophils % 0.8, Basophils % 0.2, Absolute Granulocytes 6.7 H, Absolute Lymphocytes 1.8, Absolute Monocytes 0.5, Absolute Eosinophils 0.1, Absolute Basophils 0 Assessment/Plan Assessment: 87-year-old female with past medical history of atrial fibrillation on Coumadin, coronary artery disease status post CABG (2002), hypertension, and dementia BIBA for syncope in the setting of dark stools. Upon arrival her H/H was found to be 7.6/22.8, MCV of 87.9. BUN/creatinine 34/1.5. Electrolytes sodium of 146, potassium of 3.9, chloride of 114, bicarbonate 20. Her albumin was low at 2.5 and total protein 4.8. P: #Syncope with fall secondary to GI bleed in with supratherapeutic INR Patient is on warfarin for afib. Initial INR 3.25. Given 2x FFP and 2 pRBC during admission. Syncope episode reported at home most likely secondary to hypotension due to GI bleed. Patient was found to have an episode of syncope on the commode in the ED. It was also revealed that patient had a similar episode 25 years ago due to bleeding from a stomach polyp. EGD revealed dieulafoy lesion which was cauterized. Current INR 1.28 -H/H 7.9/24 today. will transfuse 1 unit -check CBC BID -cont protonix drip -advanced to full liquid diet -hgb goal >8 #hypernatremia Na 146 -> 150 Most likely 2/2 to dehydration and NS -changed protonix drip to d5w -encourage po intake -check repete lytes @ 6pm #atrial fibrillation on anticoagulation Holding anticoagulation per cardiology #coronary artery disease status post CABG. -restart home meds once able to tolerate PO #Acute kidney injury vs CKD Unclear if LI vs CKD given lack of hx Cr remains stable 1.4 -cont to monitor -cont iv hydration, avoid nephrotoxins. #hypertension. Holding BP meds as vitals remain stable and intial hypotension from GI bleed -restart home meds once able to tolerate po #hypokalemia/hypermagnesemia -replete as needed and ct to monitor DNR DNI Clear liquid diet Problem List: 1. Symptomatic anemia 2. Syncope 3. Acute blood loss anemia 4. GI bleed Pain Ratin Pain Location: none Pain Goal: Pain 4 or less Pain Plan: tylenol Tomorrow's Labs & Rationales: cbc bep
[2017-11-20 16:00] VITALS: BP 116/48
[2017-11-20 18:59] LABS: ABSOLUTE BASOPHIL COUNT 0 /CUMM (0.0-0.2); ABSOLUTE EOSINOPHIL COUNT 0.2 /CUMM (0.0-0.7); ABSOLUTE GRANULOCYTE CT 4.4 /CUMM (1.4-6.5); ABSOLUTE LYMPH COUNT 1.3 /CUMM (1.2-3.4); ABSOLUTE MONOCYTE COUNT 0.4 /CUMM (0.10-0.60); BASOPHIL % 0.4 % (0.0-2.0); EOSINOPHIL % 2.8 % (0-5); GRANULOCYTE % 69.5 % (42.2-75.2); HEMATOCRIT 26.5 % (37-47); MEAN CORPUSCULAR HGB 29.5 PG (27.0-31.0); MEAN CORPUSCULAR HGB CONC 33.4 G/DL (33.0-37.0); MEAN CORPUSCULAR VOLUME 88.5 FL (81.0-99.0); MEAN PLATELET VOLUME 11.9 FL (7.4-10.4); PLATELET COUNT 151 /CUMM (130-400); RBC DISTRIBUTION WIDTH 15.5 % (11.5-14.5); RED BLOOD CELL CT 2.99 /CUMM (4.20-5.40); WHITE BLOOD CELL COUNT 6.3 /CUMM (4.8-10.8)
[2017-11-21] VITALS: BP 124/74
[2017-11-21 04:41] LABS: ABSOLUTE BASOPHIL COUNT 0 /CUMM (0.0-0.2); ABSOLUTE EOSINOPHIL COUNT 0.2 /CUMM (0.0-0.7); ABSOLUTE GRANULOCYTE CT 3.5 /CUMM (1.4-6.5); ABSOLUTE LYMPH COUNT 1.3 /CUMM (1.2-3.4); ABSOLUTE MONOCYTE COUNT 0.4 /CUMM (0.10-0.60); BASOPHIL % 0.3 % (0.0-2.0); EOSINOPHIL % 4.5 % (0-5); GRANULOCYTE % 64.8 % (42.2-75.2); HEMATOCRIT 25.4 % (37-47); MEAN CORPUSCULAR HGB 29.5 PG (27.0-31.0); MEAN CORPUSCULAR HGB CONC 33.6 G/DL (33.0-37.0); MEAN CORPUSCULAR VOLUME 87.8 FL (81.0-99.0); MEAN PLATELET VOLUME 10.5 FL (7.4-10.4); PLATELET COUNT 152 /CUMM (130-400); RBC DISTRIBUTION WIDTH 15.7 % (11.5-14.5); WHITE BLOOD CELL COUNT 5.4 /CUMM (4.8-10.8)
--- NOTE | 2017-11-21 05:01 | PN- Resident CRCU ---
Subjective HPI/CRCU Issues: No overnight event. s/p 1 PRBC on 11/20 without complications. Objective Vital Signs & I&O Last 8 Hrs of Vitals and I&O: Intake & Output 11/22 0800 Intake Total 10 Output Total 300 Balance -290 Intake, IV 10 Output, Urine 300 Exam General Appearance: obese, AO x3, cooperative without acute distress Cardiovascular: regular rate/rhythm, systolic murmur Gastrointestinal: normal bowel sounds, soft, non-tender Extremities: normal inspection, trace edema BLE Current Medications: Current Medications Sig/Victoriano Start time Last Medication Dose Route Stop Time Status Admin Acetaminophen 650 MG Q6P PRN 11/18 1645 AC PO Acetaminophen 1,000 MG Q6P PRN 11/18 1645 DC IV Amlodipine Besylate 10 MG DAILY 11/22 899 AC PO Atorvastatin Calcium 80 MG 1700 11/21 1700 AC 11/21 PO 1605 Cholecalciferol 1,000 IU DAILY 11/22 899 AC PO Cyanocobalamin 1,000 MCG DAILY 11/22 899 AC PO Ferrous Sulfate 325 MG DAILY 11/21 1515 AC 11/21 PO 1605 Nystatin 1 JORDYN TID PRN 11/18 1730 AC 11/18 TOP 2121 Omeprazole 40 MG BID 11/22 899 AC PO Omeprazole 40 MG DAILY AC 11/22 0700 DC PO Pantoprazole Sodium 40 MG Q5H 11/20 1030 DC 11/21 Dextrose/Water 100 ML IV 0326 Impression/Plan Impression/Problem List Impression: 87-year-old female with past medical history of atrial fibrillation on Coumadin, coronary artery disease status post CABG (2002), hypertension, and dementia BIBA for syncope in the setting of dark stools. Upon arrival her H/H was found to be 7.6/22.8, MCV of 87.9. BUN/creatinine 34/1.5. Electrolytes sodium of 146, potassium of 3.9, chloride of 114, bicarbonate 20. Her albumin was low at 2.5 and total protein 4.8. P: #Syncope with fall secondary to GI bleed in with supratherapeutic INR Patient is on warfarin for afib. Initial INR 3.25. Given 2x FFP and 2 pRBC during admission. Syncope episode reported at home most likely secondary to hypotension due to GI bleed. Patient was found to have an episode of syncope on the commode in the ED. It was also revealed that patient had a similar episode 25 years ago due to bleeding from a stomach polyp. EGD revealed dieulafoy lesion which was cauterized. Current INR 1.28 on latest lab -H/H 8.5/25.4 on latest lab s/p 1u PRBC on 11/20. will keep hgb >8 -cont protonix drip -advanced to full liquid diet #hypernatremia Na 146 -> 150 -> 145 -> 147 Most likely 2/2 to dehydration and NS -changed protonix drip to d5w -encourage po intake #atrial fibrillation on anticoagulation Holding anticoagulation per cardiology. #coronary artery disease status post CABG. -will restart home meds as pt is now full liquid diet without events. #Acute kidney injury vs CKD Unclear if LI vs CKD given lack of hx Cr remains stable 1.3 on latest lab -cont to monitor -cont iv hydration, avoid nephrotoxins. #hypertension. Holding BP meds as vitals remain stable and intial hypotension from GI bleed -restart home meds once able to tolerate po #hypokalemia/hypomagnesemia -replete as needed and ct to monitor. Currently stable. DNR DNI Full liquid diet Problem List: 1. Symptomatic anemia 2. Syncope 3. Acute blood loss anemia 4. GI bleed Pain Ratin Tomorrow's Labs & Rationales: ICU CBC Plan DVT/Prophylaxis: pharmacological
[2017-11-21 08:00] VITALS: BP 132/50
--- NOTE | 2017-11-21 09:12 | PN- CRCU ---
Subjective HPI/Critical Care Issues: Doing ok S/p prbc Now stable Objective Current Medications: Current Medications Sig/Victoriano Start time Last Medication Dose Route Stop Time Status Admin Acetaminophen 650 MG Q6P PRN 11/18 1645 AC PO Acetaminophen 1,000 MG Q6P PRN 11/18 1645 AC IV Magnesium Sulfate 1 GM ONCE ONE 11/20 0800 DC 11/20 Dextrose/Water 100 ML IV 11/20 1159 0800 Non-Formulary 0 SEE ADMIN CRITERIA 11/20 1015 DC Medication ANY Nystatin 1 JORDYN TID PRN 11/18 1730 AC 11/18 TOP 2121 Pantoprazole Sodium 40 MG Q5H 11/20 1030 AC 11/21 Dextrose/Water 100 ML IV 0326 Pantoprazole Sodium 40 MG Q5H 11/19 1630 DC 11/20 Sodium Chloride 100 ML IV 0609 Potassium Chloride 40 MEQ ONCE ONE 11/20 1115 DC 11/20 PO 11/20 1116 1215 Vital Signs & I&O Last 24 Hrs of Vitals and I&O: Laboratory Tests 11/21 11/20 0425 1743 Chemistry Sodium (137 - 145 mmol/L) 147 H 145 Potassium (3.5 - 5.1 mmol/L) 3.5 3.8 Chloride (98 - 107 mmol/L) 112 H 112 H Carbon Dioxide (22 - 30 mmol/L) 28 26 Anion Gap (5 - 16) 8 7 BUN (7 - 17 mg/dL) 23 H 29 H Creatinine (0.5 - 1.0 mg/dL) 1.3 H 1.3 H Estimated GFR (>60 ml/min) 39 L 39 L Glucose (65 - 99 mg/dL) 100 H 92 Calcium (8.4 - 10.2 mg/dL) 7.9 L 8.1 L Phosphorus (2.5 - 4.5 mg/dL) 2.5 2.5 Magnesium (1.6 - 2.3 mg/dL) 1.8 2.0 Total Bilirubin (0.2 - 1.3 mg/dL) 0.7 0.8 AST (14 - 36 U/L) 21 20 ALT (9 - 52 U/L) 26 23 Albumin (3.5 - 5.0 g/dL) 2.7 L 2.8 L Hematology CBC w Diff NO MAN DIFF REQ NO MAN DIFF REQ WBC (4.8 - 10.8 /CUMM) 5.4 6.3 RBC (4.20 - 5.40 /CUMM) 2.90 L 2.99 L Hgb (12.0 - 16.0 G/DL) 8.5 L 8.8 L Hct (37 - 47 %) 25.4 L 26.5 L MCV (81.0 - 99.0 FL) 87.8 88.5 MCH (27.0 - 31.0 PG) 29.5 29.5 MCHC (33.0 - 37.0 G/DL) 33.6 33.4 RDW (11.5 - 14.5 %) 15.7 H 15.5 H Plt Count (130 - 400 /CUMM) 152 151 MPV (7.4 - 10.4 FL) 10.5 H 11.9 H Gran % (42.2 - 75.2 %) 64.8 69.5 Lymphocytes % (20.5 - 51.1 %) 23.7 21.5 Monocytes % (1.7 - 9.3 %) 6.7 5.8 Eosinophils % (0 - 5 %) 4.5 2.8 Basophils % (0.0 - 2.0 %) 0.3 0.4 Absolute Granulocytes (1.4 - 6.5 /CUMM) 3.5 4.4 Absolute Lymphocytes (1.2 - 3.4 /CUMM) 1.3 1.3 Absolute Monocytes (0.10 - 0.60 /CUMM) 0.4 0.4 Absolute Eosinophils (0.0 - 0.7 /CUMM) 0.2 0.2 Absolute Basophils (0.0 - 0.2 /CUMM) 0 0 06/04 /03 0511 2020 Chemistry Sodium (137 - 145 mmol/L) 150 H Potassium (3.5 - 5.1 mmol/L) 3.5 Chloride (98 - 107 mmol/L) 116 H Carbon Dioxide (22 - 30 mmol/L) 26 Anion Gap (5 - 16) 8 BUN (7 - 17 mg/dL) 38 H Creatinine (0.5 - 1.0 mg/dL) 1.4 H Estimated GFR (>60 ml/min) 35 L Glucose (65 - 99 mg/dL) 91 Calcium (8.4 - 10.2 mg/dL) 8.6 Phosphorus (2.5 - 4.5 mg/dL) 2.8 Magnesium (1.6 - 2.3 mg/dL) 1.9 Total Bilirubin (0.2 - 1.3 mg/dL) 0.8 AST (14 - 36 U/L) 16 ALT (9 - 52 U/L) 23 Albumin (3.5 - 5.0 g/dL) 2.7 L Coagulation PT (9.4 - 12.5 SEC) 14.0 H INR (0.90 - 1.19) 1.28 H Hematology CBC w Diff NO MAN DIFF REQ NO MAN DIFF REQ WBC (4.8 - 10.8 /CUMM) 7.8 9.1 RBC (4.20 - 5.40 /CUMM) 2.74 L 2.93 L Hgb (12.0 - 16.0 G/DL) 7.9 L 8.4 L Hct (37 - 47 %) 24.0 L 25.6 L MCV (81.0 - 99.0 FL) 87.9 87.3 MCH (27.0 - 31.0 PG) 29.0 28.8 MCHC (33.0 - 37.0 G/DL) 33.0 33.0 RDW (11.5 - 14.5 %) 15.5 H 15.9 H Plt Count (130 - 400 /CUMM) 154 161 MPV (7.4 - 10.4 FL) 10.5 H 10.8 H Gran % (42.2 - 75.2 %) 72.5 73.2 Lymphocytes % (20.5 - 51.1 %) 19.6 L 20.0 L Monocytes % (1.7 - 9.3 %) 5.5 5.8 Eosinophils % (0 - 5 %) 2.0 0.8 Basophils % (0.0 - 2.0 %) 0.4 0.2 Absolute Granulocytes (1.4 - 6.5 /CUMM) 5.7 6.7 H Absolute Lymphocytes (1.2 - 3.4 /CUMM) 1.5 1.8 Absolute Monocytes (0.10 - 0.60 /CUMM) 0.4 0.5 Absolute Eosinophils (0.0 - 0.7 /CUMM) 0.2 0.1 Absolute Basophils (0.0 - 0.2 /CUMM) 0 0 06/03 0940 Hematology CBC w Diff NO MAN DIFF REQ WBC (4.8 - 10.8 /CUMM) 10.0 RBC (4.20 - 5.40 /CUMM) 2.88 L Hgb (12.0 - 16.0 G/DL) 8.4 L Hct (37 - 47 %) 25.1 L MCV (81.0 - 99.0 FL) 87.2 MCH (27.0 - 31.0 PG) 29.1 MCHC (33.0 - 37.0 G/DL) 33.4 RDW (11.5 - 14.5 %) 15.3 H Plt Count (130 - 400 /CUMM) 178 MPV (7.4 - 10.4 FL) 10.9 H Gran % (42.2 - 75.2 %) 69.0 Lymphocytes % (20.5 - 51.1 %) 23.8 Monocytes % (1.7 - 9.3 %) 6.7 Eosinophils % (0 - 5 %) 0.4 Basophils % (0.0 - 2.0 %) 0.1 Absolute Granulocytes (1.4 - 6.5 /CUMM) 6.9 H Absolute Lymphocytes (1.2 - 3.4 /CUMM) 2.4 Absolute Monocytes (0.10 - 0.60 /CUMM) 0.7 H Absolute Eosinophils (0.0 - 0.7 /CUMM) 0 Absolute Basophils (0.0 - 0.2 /CUMM) 0 Microbiology Date/Time Procedure - Status Source Growth 11/18 [employer] Surveillance Culture - COMP UPPER RESP 11/18 [employer] Surveillance Culture - COMP GI Vital Signs Date Time Temp Pulse Resp B/P B/P Pulse O2 O2 Flow FiO2 Mean Ox Delivery Rate 11/21 0000 98.1 74 20 124/74 98 Nasal 2.0L Cannula 11/21 0000 98 Nasal 2.0L Cannula 11/20 1600 98.8 89 20 116/48 95 Nasal 2.0L Cannula Intake & Output 11/21 1600 06/ 0800 06 0000 Intake Total 160 520 Output Total 400 400 Balance -240 120 Intake, IV 160 160 Intake, Oral 360 Output, Urine 400 400 Impression/Plan Impression/Plan Impression/Plan: Afebrile Pupils reacting extraocular movements intact neck supple there was no significant JVD Lungs were clear Abdominal exam no hepatosplenomegaly nontender No cyanosis clubbing or edema Other data reviewed EGD showed Impression: * Antral Dieulafoy's lesion, cauterized IMPRESSION This is an elderly lady with atrial fibrillation on warfarin, coronary artery disease with remote CABG, hypertension, mild dementia, symptomatic syncope due to significant GI bleed. Patient was hypercoagulable and she came in. She also has chronic kidney disease with mild kidney injury which seems to be improving. She does have history of hypertension but no NSAID use no known liver disease. She is now clinically stable. EGD as noted above, and has mild hypernatremia PLAN Prob can change to po ppi and ask gi Advanced diet if ok with GI cont monitor CBC No anticoagulation for now per GI Okay to be transferred to the general medical floor No active signs of significant bleeding today Patient is DNR/DNI Prob dc to home or snf soon
--- NOTE | 2017-11-21 15:33 | PN- Gastroenterology ---
Assessment/Plan GI Assessment/Recommendations: UGI bleed secondary to gastric Dieulafoy's lesion, cauterized. No evidence of rebleeding at this time. Hematocrit stable. Vital signs normal. Recommendations * May change pantoprazole to oral PPI, twice a day for 1 week and then daily for one month. * Heart healthy diet * CBC daily while in hospital. Maintain hemoglobin greater than 8. * Hold anticoagulation for 1 week Thank you very much for allowing GI participation in this patient's care. I will not follow her on a regular basis. Please call or reconsult as needed. I will see her after discharge; a follow-up office visit will be arranged. Subjective Subjective: No nausea, vomiting, pain, melena, hematochezia. Objective Vital Signs and I&Os Vital Signs Date Time Temp Pulse Resp B/P B/P Pulse O2 O2 Flow FiO2 Mean Ox Delivery Rate 11/22 799 98 Nasal 2.0L Cannula 11/22 799 97.7 72 20 132/50 98 Nasal 2.0L Cannula 11/21 0000 98.1 74 20 124/74 98 Nasal 2.0L Cannula 11/21 0000 98 Nasal 2.0L Cannula 11/20 1600 98.8 89 20 116/48 95 Nasal 2.0L Cannula Intake & Output 11/21 1600 11/21 0400 11/20 1600 11/20 0400 11/19 1600 11/19 0400 Intake Total 850 911 4460 427 790 6993 Output Total 400 400 634 941 9805 250 Balance -240 120 422 -306 -860 750 Intake, Blood 350 70 540 710 Product Intake, IV 160 160 357 284 300 90 Intake, Oral 360 500 200 Number 5 7 2 1 Bowel Movements Output, Urine 400 400 732 527 6935 250 Patient 192 lb 192 lb Weight Weight Bed scale Measurement Method Physical Exam: Alert, no apparent distress. Sclera anicteric. Abdomen soft, nondistended, nontender. Current Medications: Current Medications Sig/Victoriano Start time Last Medication Dose Route Stop Time Status Admin Acetaminophen 650 MG Q6P PRN 11/18 1645 AC PO Acetaminophen 1,000 MG Q6P PRN 11/18 1645 DC IV Amlodipine Besylate 10 MG DAILY 11/22 899 AC PO Atorvastatin Calcium 80 MG 1700 11/21 1700 AC PO Cholecalciferol 1,000 IU DAILY 11/22 899 AC PO Cyanocobalamin 1,000 MCG DAILY 11/22 0900 AC PO Ferrous Sulfate 325 MG DAILY 11/21 1515 AC PO Nystatin 1 JORDYN TID PRN 11/18 1730 AC 11/18 TOP 2121 Omeprazole 40 MG DAILY AC 11/22 0700 AC PO Pantoprazole Sodium 40 MG Q5H 11/20 1030 DC 11/21 Dextrose/Water 100 ML IV 0326 Results Pertinent Lab Results: Laboratory Tests 11/21 11/20 0425 1743 Chemistry Sodium (137 - 145 mmol/L) 147 H 145 Potassium (3.5 - 5.1 mmol/L) 3.5 3.8 Chloride (98 - 107 mmol/L) 112 H 112 H Carbon Dioxide (22 - 30 mmol/L) 28 26 Anion Gap (5 - 16) 8 7 BUN (7 - 17 mg/dL) 23 H 29 H Creatinine (0.5 - 1.0 mg/dL) 1.3 H 1.3 H Estimated GFR (>60 ml/min) 39 L 39 L Glucose (65 - 99 mg/dL) 100 H 92 Calcium (8.4 - 10.2 mg/dL) 7.9 L 8.1 L Phosphorus (2.5 - 4.5 mg/dL) 2.5 2.5 Magnesium (1.6 - 2.3 mg/dL) 1.8 2.0 Total Bilirubin (0.2 - 1.3 mg/dL) 0.7 0.8 AST (14 - 36 U/L) 21 20 ALT (9 - 52 U/L) 26 23 Albumin (3.5 - 5.0 g/dL) 2.7 L 2.8 L Hematology CBC w Diff NO MAN DIFF REQ NO MAN DIFF REQ WBC (4.8 - 10.8 /CUMM) 5.4 6.3 RBC (4.20 - 5.40 /CUMM) 2.90 L 2.99 L Hgb (12.0 - 16.0 G/DL) 8.5 L 8.8 L Hct (37 - 47 %) 25.4 L 26.5 L MCV (81.0 - 99.0 FL) 87.8 88.5 MCH (27.0 - 31.0 PG) 29.5 29.5 MCHC (33.0 - 37.0 G/DL) 33.6 33.4 RDW (11.5 - 14.5 %) 15.7 H 15.5 H Plt Count (130 - 400 /CUMM) 152 151 MPV (7.4 - 10.4 FL) 10.5 H 11.9 H Gran % (42.2 - 75.2 %) 64.8 69.5 Lymphocytes % (20.5 - 51.1 %) 23.7 21.5 Monocytes % (1.7 - 9.3 %) 6.7 5.8 Eosinophils % (0 - 5 %) 4.5 2.8 Basophils % (0.0 - 2.0 %) 0.3 0.4 Absolute Granulocytes (1.4 - 6.5 /CUMM) 3.5 4.4 Absolute Lymphocytes (1.2 - 3.4 /CUMM) 1.3 1.3 Absolute Monocytes (0.10 - 0.60 /CUMM) 0.4 0.4 Absolute Eosinophils (0.0 - 0.7 /CUMM) 0.2 0.2 Absolute Basophils (0.0 - 0.2 /CUMM) 0 0 /11/19 0511 2020 Chemistry Sodium (137 - 145 mmol/L) 150 H Potassium (3.5 - 5.1 mmol/L) 3.5 Chloride (98 - 107 mmol/L) 116 H Carbon Dioxide (22 - 30 mmol/L) 26 Anion Gap (5 - 16) 8 BUN (7 - 17 mg/dL) 38 H Creatinine (0.5 - 1.0 mg/dL) 1.4 H Estimated GFR (>60 ml/min) 35 L Glucose (65 - 99 mg/dL) 91 Calcium (8.4 - 10.2 mg/dL) 8.6 Phosphorus (2.5 - 4.5 mg/dL) 2.8 Magnesium (1.6 - 2.3 mg/dL) 1.9 Total Bilirubin (0.2 - 1.3 mg/dL) 0.8 AST (14 - 36 U/L) 16 ALT (9 - 52 U/L) 23 Albumin (3.5 - 5.0 g/dL) 2.7 L Coagulation PT (9.4 - 12.5 SEC) 14.0 H INR (0.90 - 1.19) 1.28 H Hematology CBC w Diff NO MAN DIFF REQ NO MAN DIFF REQ WBC (4.8 - 10.8 /CUMM) 7.8 9.1 RBC (4.20 - 5.40 /CUMM) 2.74 L 2.93 L Hgb (12.0 - 16.0 G/DL) 7.9 L 8.4 L Hct (37 - 47 %) 24.0 L 25.6 L MCV (81.0 - 99.0 FL) 87.9 87.3 MCH (27.0 - 31.0 PG) 29.0 28.8 MCHC (33.0 - 37.0 G/DL) 33.0 33.0 RDW (11.5 - 14.5 %) 15.5 H 15.9 H Plt Count (130 - 400 /CUMM) 154 161 MPV (7.4 - 10.4 FL) 10.5 H 10.8 H Gran % (42.2 - 75.2 %) 72.5 73.2 Lymphocytes % (20.5 - 51.1 %) 19.6 L 20.0 L Monocytes % (1.7 - 9.3 %) 5.5 5.8 Eosinophils % (0 - 5 %) 2.0 0.8 Basophils % (0.0 - 2.0 %) 0.4 0.2 Absolute Granulocytes (1.4 - 6.5 /CUMM) 5.7 6.7 H Absolute Lymphocytes (1.2 - 3.4 /CUMM) 1.5 1.8 Absolute Monocytes (0.10 - 0.60 /CUMM) 0.4 0.5 Absolute Eosinophils (0.0 - 0.7 /CUMM) 0.2 0.1 Absolute Basophils (0.0 - 0.2 /CUMM) 0 0 06/03 06/03 0940 0330 Chemistry Sodium (137 - 145 mmol/L) 146 H Potassium (3.5 - 5.1 mmol/L) 3.5 Chloride (98 - 107 mmol/L) 111 H Carbon Dioxide (22 - 30 mmol/L) 23 Anion Gap (5 - 16) 11 BUN (7 - 17 mg/dL) 55 H Creatinine (0.5 - 1.0 mg/dL) 1.4 H Estimated GFR (>60 ml/min) 35 L Glucose (65 - 99 mg/dL) 85 Calcium (8.4 - 10.2 mg/dL) 8.2 L Phosphorus (2.5 - 4.5 mg/dL) 2.4 L Magnesium (1.6 - 2.3 mg/dL) 1.3 L Total Bilirubin (0.2 - 1.3 mg/dL) 0.6 AST (14 - 36 U/L) 16 ALT (9 - 52 U/L) 23 Troponin I (< 0.11 ng/ml) 0.03 Albumin (3.5 - 5.0 g/dL) 3.0 L Coagulation PT (9.4 - 12.5 SEC) 19.2 H INR (0.90 - 1.19) 1.75 H Hematology CBC w Diff NO MAN DIFF REQ NO MAN DIFF REQ WBC (4.8 - 10.8 /CUMM) 10.0 9.0 RBC (4.20 - 5.40 /CUMM) 2.88 L 2.74 L Hgb (12.0 - 16.0 G/DL) 8.4 L 8.0 L Hct (37 - 47 %) 25.1 L 23.9 L MCV (81.0 - 99.0 FL) 87.2 87.2 MCH (27.0 - 31.0 PG) 29.1 29.3 MCHC (33.0 - 37.0 G/DL) 33.4 33.5 RDW (11.5 - 14.5 %) 15.3 H 14.9 H Plt Count (130 - 400 /CUMM) 178 155 MPV (7.4 - 10.4 FL) 10.9 H 11.0 H Gran % (42.2 - 75.2 %) 69.0 66.1 Lymphocytes % (20.5 - 51.1 %) 23.8 26.2 Monocytes % (1.7 - 9.3 %) 6.7 6.4 Eosinophils % (0 - 5 %) 0.4 0.3 Basophils % (0.0 - 2.0 %) 0.1 1.0 Absolute Granulocytes (1.4 - 6.5 /CUMM) 6.9 H 5.9 Absolute Lymphocytes (1.2 - 3.4 /CUMM) 2.4 2.3 Absolute Monocytes (0.10 - 0.60 /CUMM) 0.7 H 0.6 Absolute Eosinophils (0.0 - 0.7 /CUMM) 0 0 Absolute Basophils (0.0 - 0.2 /CUMM) 0 0.1 06/02 06/ 2100 1700 Chemistry Lactic Acid (0.7 - 2.1 mmol/L) 1.2 1.9 Troponin I (< 0.11 ng/ml) 0.01 Hematology CBC w Diff NO MAN DIFF REQ WBC (4.8 - 10.8 /CUMM) 9.1 RBC (4.20 - 5.40 /CUMM) 2.92 L Hgb (12.0 - 16.0 G/DL) 8.4 L Hct (37 - 47 %) 25.5 L MCV (81.0 - 99.0 FL) 87.4 MCH (27.0 - 31.0 PG) 28.9 MCHC (33.0 - 37.0 G/DL) 33.1 RDW (11.5 - 14.5 %) 14.8 H Plt Count (130 - 400 /CUMM) 162 MPV (7.4 - 10.4 FL) 11.0 H Gran % (42.2 - 75.2 %) 77.2 H Lymphocytes % (20.5 - 51.1 %) 17.7 L Monocytes % (1.7 - 9.3 %) 4.6 Eosinophils % (0 - 5 %) 0.1 Basophils % (0.0 - 2.0 %) 0.4 Absolute Granulocytes (1.4 - 6.5 /CUMM) 7.0 H Absolute Lymphocytes (1.2 - 3.4 /CUMM) 1.6 Absolute Monocytes (0.10 - 0.60 /CUMM) 0.4 Absolute Eosinophils (0.0 - 0.7 /CUMM) 0 Absolute Basophils (0.0 - 0.2 /CUMM) 0
[2017-11-21 16:00] VITALS: BP 118/78
[2017-11-21 23:50] VITALS: BP 115/70
--- NOTE | 2017-11-22 07:36 | PN- Resident CRCU ---
Subjective HPI/CRCU Issues: No overnight event. Patient was eating breakfast when I entered to exam. no specific complaint. Objective Vital Signs & I&O Last 8 Hrs of Vitals and I&O: Intake & Output 11/22 1600 Intake Total Output Total 300 Balance -300 Number 1 Bowel Movements Output, Urine 300 Exam General Appearance: well developed/nourished, no apparent distress, alert, awake , comfortable Cardiovascular: regular rate/rhythm Gastrointestinal: normal bowel sounds, soft, non-tender Extremities: no edema Current Medications: Current Medications Sig/Victoraino Start time Last Medication Dose Route Stop Time Status Admin Acetaminophen 650 MG Q6P PRN 11/18 1645 AC PO Amlodipine Besylate 10 MG DAILY 11/22 0900 AC 11/22 PO 0852 Atorvastatin Calcium 80 MG 1700 11/21 1700 AC 11/21 PO 1605 Cholecalciferol 1,000 IU DAILY 11/22 09 AC 11/22 PO 0852 Cyanocobalamin 1,000 MCG DAILY 11/22 09 AC 11/22 PO 0852 Ferrous Sulfate 325 MG DAILY 11/21 1515 AC 11/22 PO 0852 Nystatin 1 JORDYN TID PRN 11/18 1730 AC 11/18 TOP 2121 Omeprazole 40 MG BID 11/22 09 AC 11/22 PO 0853 Omeprazole 40 MG DAILY AC 11/22 0700 DC PO Impression/Plan Impression/Problem List Impression: 87-year-old female with past medical history of atrial fibrillation on Coumadin, coronary artery disease status post CABG (2002), hypertension, and dementia BIBA for syncope in the setting of dark stools. Upon arrival her H/H was found to be 7.6/22.8, MCV of 87.9. BUN/creatinine 34/1.5. Electrolytes sodium of 146, potassium of 3.9, chloride of 114, bicarbonate 20. Her albumin was low at 2.5 and total protein 4.8. P: #Syncope with fall secondary to GI bleed in with supratherapeutic INR Patient is on warfarin for afib. Initial INR 3.25. Given 2x FFP and 2 pRBC during admission. Syncope episode reported at home most likely secondary to hypotension due to GI bleed. Patient was found to have an episode of syncope on the commode in the ED. It was also revealed that patient had a similar episode 25 years ago due to bleeding from a stomach polyp. EGD revealed dieulafoy lesion which was cauterized. Current INR 1.28 on latest lab -H/H 8.5/25.4 on latest lab s/p 1u PRBC on 11/20. will keep hgb >8 -cont protonix drip -advanced to heart healthy diet. Pending discharge placement today. #hypernatremia Na 146 -> 150 -> 145 -> 146 Most likely 2/2 to dehydration and NS -changed to PO protonix -encourage po intake #atrial fibrillation on anticoagulation Holding anticoagulation per cardiology. Pending restart by GI outpatient #coronary artery disease status post CABG. -will restart home meds as pt is now full liquid diet without events. #Acute kidney injury vs CKD Unclear if LI vs CKD given lack of hx Cr remains stable 1.3 on latest lab -cont to monitor -Patient is eating now, no need for IVF, avoid nephrotoxins. #hypertension. Holding BP meds as vitals remain stable and intial hypotension from GI bleed -restart home meds once able to tolerate po #hypokalemia/hypomagnesemia -replete as needed and ct to monitor. Currently stable. DNR DNI Heart healthy diet Problem List: 1. Dieulafoy lesion of stomach Pain Ratin Tomorrow's Labs & Rationales: NONE Plan DVT/Prophylaxis: pharmacological
[2017-11-22 08:20] LABS: ABSOLUTE BASOPHIL COUNT 0 /CUMM (0.0-0.2); ABSOLUTE EOSINOPHIL COUNT 0.2 /CUMM (0.0-0.7); ABSOLUTE GRANULOCYTE CT 3.7 /CUMM (1.4-6.5); ABSOLUTE LYMPH COUNT 1.3 /CUMM (1.2-3.4); ABSOLUTE MONOCYTE COUNT 0.3 /CUMM (0.10-0.60); BASOPHIL % 0.5 % (0.0-2.0); EOSINOPHIL % 4.2 % (0-5); GRANULOCYTE % 66.9 % (42.2-75.2); HEMATOCRIT 26.9 % (37-47); MEAN CORPUSCULAR HGB 29.3 PG (27.0-31.0); MEAN CORPUSCULAR HGB CONC 33.1 G/DL (33.0-37.0); MEAN CORPUSCULAR VOLUME 88.7 FL (81.0-99.0); MEAN PLATELET VOLUME 10.6 FL (7.4-10.4); PLATELET COUNT 138 /CUMM (130-400); RBC DISTRIBUTION WIDTH 15.4 % (11.5-14.5); RED BLOOD CELL CT 3.04 /CUMM (4.20-5.40); WHITE BLOOD CELL COUNT 5.5 /CUMM (4.8-10.8)
[2017-11-22 08:46] VITALS: BP 126/58
--- NOTE | 2017-11-22 09:51 | PN- Pulmonary ---
Subjective HPI/Critical Care Issues: Doing ok stable no further bleed Objective Current Medications: Current Medications Sig/Victoriano Start time Last Medication Dose Route Stop Time Status Admin Acetaminophen 650 MG Q6P PRN 11/18 1645 AC PO Acetaminophen 1,000 MG Q6P PRN 11/18 1645 DC IV Amlodipine Besylate 10 MG DAILY 11/22 09 AC 11/22 PO 0852 Atorvastatin Calcium 80 MG 1700 11/21 1700 AC 11/21 PO 1605 Cholecalciferol 1,000 IU DAILY 11/22 899 AC 11/22 PO 0852 Cyanocobalamin 1,000 MCG DAILY 11/22 899 AC 11/22 PO 0852 Ferrous Sulfate 325 MG DAILY 11/21 1515 AC 11/22 PO 0852 Nystatin 1 JORDYN TID PRN 11/18 1730 AC 11/18 TOP 2121 Omeprazole 40 MG BID 11/22 899 AC 11/22 PO 0853 Omeprazole 40 MG DAILY AC 11/22 0700 DC PO Pantoprazole Sodium 40 MG Q5H 11/20 1030 DC 11/21 Dextrose/Water 100 ML IV 0326 Vital Signs & I&O Last 24 Hrs of Vitals and I&O: Vital Signs Date Time Temp Pulse Resp B/P B/P Pulse O2 O2 Flow FiO2 Mean Ox Delivery Rate 11/22 0852 126/58 11/22 0846 97.0 63 18 126/58 91 Room Air 11/22 0000 Nasal 2.0L Cannula 11/21 2350 97.5 72 18 115/70 94 Nasal 2.0L Cannula 11/21 1609 Nasal 2.0L Cannula 11/21 1600 98.1 82 20 118/78 98 Nasal 2.0L Cannula Intake & Output 11/22 1600 11/22 0800 11/22 0000 Intake Total 10 Output Total 300 300 Balance -290 -300 Intake, IV 10 Number 1 Bowel Movements Output, Urine 300 300 Laboratory Tests 11/22 11/21 0600 0425 Chemistry Sodium (137 - 145 mmol/L) 146 H 147 H Potassium (3.5 - 5.1 mmol/L) 3.6 3.5 Chloride (98 - 107 mmol/L) 110 H 112 H Carbon Dioxide (22 - 30 mmol/L) 30 28 Anion Gap (5 - 16) 7 8 BUN (7 - 17 mg/dL) 19 H 23 H Creatinine (0.5 - 1.0 mg/dL) 1.3 H 1.3 H Estimated GFR (>60 ml/min) 39 L 39 L Glucose (65 - 99 mg/dL) 95 100 H Calcium (8.4 - 10.2 mg/dL) 8.6 7.9 L Phosphorus (2.5 - 4.5 mg/dL) 2.9 2.5 Magnesium (1.6 - 2.3 mg/dL) 1.8 1.8 Total Bilirubin (0.2 - 1.3 mg/dL) 0.7 0.7 AST (14 - 36 U/L) 27 21 ALT (9 - 52 U/L) 24 26 Albumin (3.5 - 5.0 g/dL) 2.9 L 2.7 L Hematology CBC w Diff NO MAN DIFF REQ NO MAN DIFF REQ WBC (4.8 - 10.8 /CUMM) 5.5 5.4 RBC (4.20 - 5.40 /CUMM) 3.04 L 2.90 L Hgb (12.0 - 16.0 G/DL) 8.9 L 8.5 L Hct (37 - 47 %) 26.9 L 25.4 L MCV (81.0 - 99.0 FL) 88.7 87.8 MCH (27.0 - 31.0 PG) 29.3 29.5 MCHC (33.0 - 37.0 G/DL) 33.1 33.6 RDW (11.5 - 14.5 %) 15.4 H 15.7 H Plt Count (130 - 400 /CUMM) 138 152 MPV (7.4 - 10.4 FL) 10.6 H 10.5 H Gran % (42.2 - 75.2 %) 66.9 64.8 Lymphocytes % (20.5 - 51.1 %) 22.8 23.7 Monocytes % (1.7 - 9.3 %) 5.6 6.7 Eosinophils % (0 - 5 %) 4.2 4.5 Basophils % (0.0 - 2.0 %) 0.5 0.3 Absolute Granulocytes (1.4 - 6.5 /CUMM) 3.7 3.5 Absolute Lymphocytes (1.2 - 3.4 /CUMM) 1.3 1.3 Absolute Monocytes (0.10 - 0.60 /CUMM) 0.3 0.4 Absolute Eosinophils (0.0 - 0.7 /CUMM) 0.2 0.2 Absolute Basophils (0.0 - 0.2 /CUMM) 0 0 06/04 1743 Chemistry Sodium (137 - 145 mmol/L) 145 Potassium (3.5 - 5.1 mmol/L) 3.8 Chloride (98 - 107 mmol/L) 112 H Carbon Dioxide (22 - 30 mmol/L) 26 Anion Gap (5 - 16) 7 BUN (7 - 17 mg/dL) 29 H Creatinine (0.5 - 1.0 mg/dL) 1.3 H Estimated GFR (>60 ml/min) 39 L Glucose (65 - 99 mg/dL) 92 Calcium (8.4 - 10.2 mg/dL) 8.1 L Phosphorus (2.5 - 4.5 mg/dL) 2.5 Magnesium (1.6 - 2.3 mg/dL) 2.0 Total Bilirubin (0.2 - 1.3 mg/dL) 0.8 AST (14 - 36 U/L) 20 ALT (9 - 52 U/L) 23 Albumin (3.5 - 5.0 g/dL) 2.8 L Hematology CBC w Diff NO MAN DIFF REQ WBC (4.8 - 10.8 /CUMM) 6.3 RBC (4.20 - 5.40 /CUMM) 2.99 L Hgb (12.0 - 16.0 G/DL) 8.8 L Hct (37 - 47 %) 26.5 L MCV (81.0 - 99.0 FL) 88.5 MCH (27.0 - 31.0 PG) 29.5 MCHC (33.0 - 37.0 G/DL) 33.4 RDW (11.5 - 14.5 %) 15.5 H Plt Count (130 - 400 /CUMM) 151 MPV (7.4 - 10.4 FL) 11.9 H Gran % (42.2 - 75.2 %) 69.5 Lymphocytes % (20.5 - 51.1 %) 21.5 Monocytes % (1.7 - 9.3 %) 5.8 Eosinophils % (0 - 5 %) 2.8 Basophils % (0.0 - 2.0 %) 0.4 Absolute Granulocytes (1.4 - 6.5 /CUMM) 4.4 Absolute Lymphocytes (1.2 - 3.4 /CUMM) 1.3 Absolute Monocytes (0.10 - 0.60 /CUMM) 0.4 Absolute Eosinophils (0.0 - 0.7 /CUMM) 0.2 Absolute Basophils (0.0 - 0.2 /CUMM) 0 Laboratory Tests 11/22 06/05 0600 0425 Chemistry Sodium (137 - 145 mmol/L) 146 H 147 H Potassium (3.5 - 5.1 mmol/L) 3.6 3.5 Chloride (98 - 107 mmol/L) 110 H 112 H Carbon Dioxide (22 - 30 mmol/L) 30 28 Anion Gap (5 - 16) 7 8 BUN (7 - 17 mg/dL) 19 H 23 H Creatinine (0.5 - 1.0 mg/dL) 1.3 H 1.3 H Estimated GFR (>60 ml/min) 39 L 39 L Glucose (65 - 99 mg/dL) 95 100 H Calcium (8.4 - 10.2 mg/dL) 8.6 7.9 L Phosphorus (2.5 - 4.5 mg/dL) 2.9 2.5 Magnesium (1.6 - 2.3 mg/dL) 1.8 1.8 Total Bilirubin (0.2 - 1.3 mg/dL) 0.7 0.7 AST (14 - 36 U/L) 27 21 ALT (9 - 52 U/L) 24 26 Albumin (3.5 - 5.0 g/dL) 2.9 L 2.7 L Hematology CBC w Diff NO MAN DIFF REQ NO MAN DIFF REQ WBC (4.8 - 10.8 /CUMM) 5.5 5.4 RBC (4.20 - 5.40 /CUMM) 3.04 L 2.90 L Hgb (12.0 - 16.0 G/DL) 8.9 L 8.5 L Hct (37 - 47 %) 26.9 L 25.4 L MCV (81.0 - 99.0 FL) 88.7 87.8 MCH (27.0 - 31.0 PG) 29.3 29.5 MCHC (33.0 - 37.0 G/DL) 33.1 33.6 RDW (11.5 - 14.5 %) 15.4 H 15.7 H Plt Count (130 - 400 /CUMM) 138 152 MPV (7.4 - 10.4 FL) 10.6 H 10.5 H Gran % (42.2 - 75.2 %) 66.9 64.8 Lymphocytes % (20.5 - 51.1 %) 22.8 23.7 Monocytes % (1.7 - 9.3 %) 5.6 6.7 Eosinophils % (0 - 5 %) 4.2 4.5 Basophils % (0.0 - 2.0 %) 0.5 0.3 Absolute Granulocytes (1.4 - 6.5 /CUMM) 3.7 3.5 Absolute Lymphocytes (1.2 - 3.4 /CUMM) 1.3 1.3 Absolute Monocytes (0.10 - 0.60 /CUMM) 0.3 0.4 Absolute Eosinophils (0.0 - 0.7 /CUMM) 0.2 0.2 Absolute Basophils (0.0 - 0.2 /CUMM) 0 0 06/04 1743 Chemistry Sodium (137 - 145 mmol/L) 145 Potassium (3.5 - 5.1 mmol/L) 3.8 Chloride (98 - 107 mmol/L) 112 H Carbon Dioxide (22 - 30 mmol/L) 26 Anion Gap (5 - 16) 7 BUN (7 - 17 mg/dL) 29 H Creatinine (0.5 - 1.0 mg/dL) 1.3 H Estimated GFR (>60 ml/min) 39 L Glucose (65 - 99 mg/dL) 92 Calcium (8.4 - 10.2 mg/dL) 8.1 L Phosphorus (2.5 - 4.5 mg/dL) 2.5 Magnesium (1.6 - 2.3 mg/dL) 2.0 Total Bilirubin (0.2 - 1.3 mg/dL) 0.8 AST (14 - 36 U/L) 20 ALT (9 - 52 U/L) 23 Albumin (3.5 - 5.0 g/dL) 2.8 L Hematology CBC w Diff NO MAN DIFF REQ WBC (4.8 - 10.8 /CUMM) 6.3 RBC (4.20 - 5.40 /CUMM) 2.99 L Hgb (12.0 - 16.0 G/DL) 8.8 L Hct (37 - 47 %) 26.5 L MCV (81.0 - 99.0 FL) 88.5 MCH (27.0 - 31.0 PG) 29.5 MCHC (33.0 - 37.0 G/DL) 33.4 RDW (11.5 - 14.5 %) 15.5 H Plt Count (130 - 400 /CUMM) 151 MPV (7.4 - 10.4 FL) 11.9 H Gran % (42.2 - 75.2 %) 69.5 Lymphocytes % (20.5 - 51.1 %) 21.5 Monocytes % (1.7 - 9.3 %) 5.8 Eosinophils % (0 - 5 %) 2.8 Basophils % (0.0 - 2.0 %) 0.4 Absolute Granulocytes (1.4 - 6.5 /CUMM) 4.4 Absolute Lymphocytes (1.2 - 3.4 /CUMM) 1.3 Absolute Monocytes (0.10 - 0.60 /CUMM) 0.4 Absolute Eosinophils (0.0 - 0.7 /CUMM) 0.2 Absolute Basophils (0.0 - 0.2 /CUMM) 0 Impression/Plan Impression/Plan Impression/Plan: Afebrile Pupils reacting extraocular movements intact neck supple there was no significant JVD Lungs were clear Abdominal exam no hepatosplenomegaly nontender No cyanosis clubbing or edema Other data reviewed EGD showed IMPRESSION This is an elderly lady with atrial fibrillation on warfarin, coronary artery disease with remote CABG, hypertension, mild dementia, symptomatic syncope due to significant GI bleed. Patient was hypercoagulable and she came in. She also has chronic kidney disease with mild kidney injury which seems to be improving. She does have history of hypertension but no NSAID use no known liver disease. She is now clinically stable. EGD as noted above, and has mild hypernatremia Impression: * Antral Dieulafoy's lesion, cauterized Upper gi bleed resolved ( 3 prbc and 2 ffp, did receive vit k for reversal of warfarin) (Inr 3.5 upon admission) PLAN Stable and no further bleed Heart healthy diet Po ppi bid for one week and then qd To start anticoag as out pt in a week per gi PT OT to see and pt can be dcd today Remove TLC if pt stays here today with a peripheral
--- NOTE | 2017-11-22 11:07 | Discharge Summary ---
Visit Information Visit Dates Admission Date: 11/18/17 Discharge Date: 11/22/2017 Hospital Course Course Attending Physician: Dixie JOHN,Kevyn Holt Primary Care Physician: Clare Zambrano MD Hospital Course: 87 year old woman with multiple medical problems significant for atrial fibrillation on coumadin and coronary artery disease brought in by ambulance after passing out at home. Patient was found to be hypoxic and hypotensive for which she was given intravenous fluids in the ED and placed on supplemental oxygen. Vitamin K and FFP were given for a supratherapeutic INR and active bleeding. For further evaluation of these findings she was admitted to the ICU. Patient feels at baseline other than her new fatigue. Patients vitals remain stable at rest after the fluid bolus on small amount of supplement oxygen via nasal cannula. Labs are significant for hemoglobin of 7.6, creatinine of 1.5, lactic acid of 2.1, and INR of 3.25. Patient received 10 mg of IM vitamin K and FFP. CT Head was negative for acute intracranial bleed. CXR demonstrated a questionable pneumonia. EKG demonstrated ST segment depressions in V3-V6, AvL, and I with nonspecific interventricular conduction delay. Troponin is negative. During ICU course, patient was treated for following #Antral Dieulafoy's lesion, cauterized #Acute kidney injury #Supratherapeutic INR, resolved to 1.28 #Hx of Atrial Fibrillation, now Coumadin on hold #Hx of Coronary artery disease s/p CABG, Hypertension, Dementia Upon admission, patient's Coumadin was on hold for supratherapeutic INR, received a total of 3 units of PRBC over the hospital course +2 units of fresh frozen plasma to reverse INR, kept n.p.o., and repeat for any lab/electrolytes derangements. Continue hydration for LI, which resolved to 1.3 from 1.5 admission, possibly at patient's baseline of underlying CKD Patient underwent EGD for cauterization of antral dieulafoy was no evidence of rebleed at this time. GI consult was on board are recommended IV to switch to oral PPI after the procedure, twice a day for week and then daily for 1 more month. At this point due to the GI bleeding, patient's Coumadin was on hold for at least a week after discharge, and patient will follow up with GI pending restart of the Coumadin within a week. DVT PPX ALPS Heart Healthy Diet on discharge DNR/DNI Allergies: Coded Allergies: No Known Allergies (11/18/17) Significant Procedures: Procedure Date: 11/19/17 Procedure Type: EGD with cautery Saw Filer: Mic Rivero M.D. ASA Classification: III Indications: Melena, blood loss anemia Instrument: diagnostic gastroscope Meds Received: MAC Patient's Tolerance: good Complications: none Extent Reached: third part of duodenum Procedure: Informed consent was obtained from the patient's daughter, Jennifer Coker. The patient was medicated. Lidocaine pharyngeal spray was administered. Pulse oximetry, blood pressure and cardiac monitoring were performed continuously throughout the procedure. The Olympus high-definition gastroscope was inserted into the mouth and advanced to the duodenum. Retroflexion was performed within the stomach to examine the cardia. Careful examination was performed. Findings: The esophagus had normal caliber and contour. The mucosa was normal throughout. There were no varices, although there were prominent submucosal vessels distally. There was no blood in the esophagus. The GE junction at 40 cm was normal. There was no hiatal hernia. The stomach had normal distention, and active peristalsis. The cardia was normal. Mucosa and folds the fundus and body were normal. There were several tiny fundic polyps, left intact. There were no varices, nor gastropathy. There was fresh blood in the proximal antrum. When washed, this revealed a Dieulafoy' s lesion: a subcentimeter area of raised mucosa on the greater curvature, with central indentation/erosion, with fresh blood at its surface. The remainder of the antrum was normal. There were no other erosions or ulcers. The pyloric channel was normal. The duodenal bulb was normal, without erosion, ulceration, deformity or nodularity. The mucosa and folds of the second and third portions of the duodenum were normal. Epinephrine was injected into 2 sites of the antral lesion (on initial contact with the needle, active bleeding ensued). The lesion was cauterized using 25 W bipolar current via a Gold probe. With initial cautery there was continued and at some points increased bleeding. With further, deeper cautery and tissue ablation, hemostasis was achieved. Impression: * Antral Dieulafoy's lesion, cauterized Recommendations: * Pantoprazole 80 mg IV bolus followed by 8 mg per hour infusion * Nothing by mouth for 2 hours, followed by a clear liquid diet * CBC twice daily; transfuse as needed to maintain hemoglobin greater than 8 * No anticoagulation; check INR in the morning Pertinent Lab Results: SERVICE DATE: 11/18/17 EXAM TYPE: RAD - XRY-PORTABLE CHEST XRAY IMPRESSION: 1. Challenging study secondary to technical factors. 2. Question developing pneumonia at the left lung base with a small to moderate left parapneumonic effusion. Alternatively, if there is a history of recent trauma there may be a hemorrhagic effusion related to adjacent rib fractures which are partially imaged and not well seen on this study secondary to technical factors. SERVICE DATE: 11/18/17 EXAM TYPE: CAT - CT HEAD WO IV CONTRAST IMPRESSION: 1. No acute intracranial hemorrhage. 2. Moderate chronic small vessel ischemic change. SERVICE DATE: 11/18/17 EXAM TYPE: CARD - ECHOCARDIOGRAM CONCLUSIONS Mild left ventricular dilatation. Normal left ventricular ejection fraction visually estimated at > 55%. Abnormal relaxation filling pattern of the left ventricle for age (stage 1 diastolic dysfunction). Mildly increased resting left ventricular outflow tract velocity (1.4 m/s). Normal right ventricular size and function. Normal right atrial size. Left atrium mildly dilated. Mild mitral regurgitation. No hemodynamically significant aortic stenosis. Trace aortic regurgitation. Mild tricuspid regurgitation. Right ventricular systolic pressure estimated at 34 mmHg. Mildly dilated ascending aorta. Chris Blanton M.D. (Electronically Signed) SERVICE DATE: 11/19/17 EXAM TYPE: RAD - XRY-PORTABLE CHEST XRAY IMPRESSION: Central venous line with the distal tip projecting over the cavoatrial junction. No additional new findings. Disposition Summary Disposition Principal Diagnosis: #Syncope with fall secondary to GI bleed in with supratherapeutic INR #Antral Dieulafoy Lesion, cauterized #Hypernatremia #Hx of a-fib #CAD s/p CABG #LI on CKD, resolved #Hypokalemia/Hypomagnesemia, resolve Additional Diagnosis: as above Discharge Disposition: SNF Discharge Instructions General Discharge Information Code Status: Do Not Resucitate/Intubat Patient's Diet: heart healthy diet Patient's Activity: as tolerated Follow-Up Instructions/Appts: - Please follow up with your GI specialist Dr. Mic Rivero within a week of discharge to discuss the restart of Warfarin. A referral was made in system. - Please follow up with your primary care physician within 1-2 weeks of discharge. Inform your primary care physician of this admission to [facility]. - Continue your current medications per discharge instructions. - Please watch for these problems: Fever, Chills, Nausea, Vomiting, Shortness of Breath, Productive Cough, Chest Pain/Discomfort, Abdominal Pain, Active Bleeding or Bloody urine/stool. Medications at Discharge Discharge Medications: Stop taking the following medications: Warfarin Sodium (Coumadin) 4 MG TABLET ORAL As Directed Continue taking these medications: Amlodipine Besylate (Amlodipine Besylate) 10 MG TABLET 1 Tablet ORAL DAILY Atenolol (Atenolol) 50 MG TABLET 1 Tablet ORAL DAILY Cyanocobalamin (Vitamin B-12) 1,000 MCG TABLET 1 Tablet ORAL DAILY Iron Polysaccharide Complex (Ferrex 150) 150 MG IRON CAPSULE 1 Capsule ORAL DAILY Indapamide (Indapamide) 1.25 MG TABLET 1 Tablet ORAL TWICE WEEKLY Nitroglycerin (Nitroglycerin) 0.4 MG TAB.SUBL 1 Tablet SUBLINGUAL As Directed Instructions: 1st sign of attack; may repeat every 5 minutes until relief; if pain persists after 3 tablets in 15 minutes, prompt medical att Rosuvastatin Calcium (Crestor) 40 MG TABLET 1 Tablet ORAL DAILY Cholecalciferol (Vitamin D3) (Vitamin D) 1,000 UNIT TABLET 1 Tablet ORAL DAILY Start taking the following new medications: Pantoprazole Sodium (Protonix) 40 MG TABLET. 1 Tablet ORAL TWICE DAILY Qty = 60 No Refills Comments: 11/23-: Take 1 tablet each time, twice daily 11/30-12/29: Take 1 tablet each time, once daily Copies To: Juan Manuel JOHN,Clare
[2017-11-22] MEDS ORDERED: PROTONIX40 M3 PO (11:17)
--- NOTE | 2017-11-22 11:19 | Patient Discharge Instructions ---
Discharge Instructions General Discharge Information Special Instructions: - Please follow up with your GI specialist Dr. Mic Rivero within a week of discharge to discuss the restart of Warfarin. A referral was made in system. - Please follow up with your primary care physician within 1-2 weeks of discharge. Inform your primary care physician of this admission to [facility]. - Continue your current medications per discharge instructions. - Please watch for these problems: Fever, Chills, Nausea, Vomiting, Shortness of Breath, Productive Cough, Chest Pain/Discomfort, Abdominal Pain, Active Bleeding or Bloody urine/stool. Diet Continue normal diet: Yes Recommended Diet: Heart Healthy Activity Full Activity/No Limits: Yes Acute Coronary Syndrome Inclusion Criteria At DC or during hospital stay patient has or had the following: ACS DIAGNOSIS No Discharge Core Measures Meds if any: Prescribed or Continued at Discharge Meds if any: NOT Prescribed or Continued at Discharge Congestive Heart Failure Inclusion Criteria At DC or during hospital stay patient has or had the following: CHF DIAGNOSIS No Discharge Core Measures Meds if any: Prescribed or Continued at Discharge Meds if any: NOT Prescribed or Continued at Discharge Cerebrovascular accident Inclusion Criteria At DC or during hospital stay patient has or had the following: CVA/TIA Diagnosis No Discharge Core Measures Meds if any: Prescribed or Continued at Discharge Meds if any: NOT Prescribed or Continued at Discharge Venous thromboembolism Inclusion Criteria VTE Diagnosis No VTE Type NONE VTE Confirmed by (Test) NONE Discharge Core Measures - Per Current guidelines, there needs to be overlap - treatment for the first 5 days of Warfarin therapy. - If discharged on Warfarin prior to 5 days of - overlap therapy, the patient will need to be - assessed for post discharge needs including - *Post discharge parental anticoagulation - *Warfarin and/or parental anticoagulation education - *Follow up date to check INR post discharge At least 5 days overlap therapy as Inpatient No Meds if any: Prescribed or Continued at Discharge Note: Overlap Therapy is Warfarin and Anticoagulant Meds if any: NOT Prescribed or Continued at Discharge Meds if any: NOT Prescribed or Continued at Discharge
[2017-11-22 15:15] VITALS: BP 126/58
== END 2017-11-22 18:00 | DRG 811 ==
LOC: ERH 13:01 → ERHI 15:37 → CRI 15:37 → ENRESERV 16:02 → CRI 16:33
PROVIDERS: Internal Medicine; Internal Medicine Interventional Cardiology; Student in an Organized Health Care Education/Training Program
PROC: 30233N1 Transfusion of Nonautologous Red Blood Cells into Peripheral Vein, Percutaneous Approach (ICD-10-PCS; principal; 2017-11-18)
PROC: 30233K1 Transfusion of Nonautologous Frozen Plasma into Peripheral Vein, Percutaneous Approach (ICD-10-PCS; 2017-11-18)
PROC: 0W3P8ZZ Control Bleeding in Gastrointestinal Tract, Via Natural or Artificial Opening Endoscopic (ICD-10-PCS; 2017-11-19)
PROC: 02HV33Z Insertion of Infusion Device into Superior Vena Cava, Percutaneous Approach (ICD-10-PCS; 2017-11-19)
PROC: B5181ZA Fluoroscopy of Superior Vena Cava using Low Osmolar Contrast, Guidance (ICD-10-PCS; 2017-11-19)
DX: D62 Acute posthemorrhagic anemia (principal); K31.82 Dieulafoy lesion (hemorrhagic) of stomach and duodenum; N17.9 Acute kidney failure, unspecified; E87.0 Hyperosmolality and hypernatremia; K92.1 Melena; E83.51 Hypocalcemia; I95.9 Hypotension, unspecified; I48.91 Unspecified atrial fibrillation; Z79.01 Long term (current) use of anticoagulants; I11.9 Hypertensive heart disease without heart failure; I25.10 Atherosclerotic heart disease of native coronary artery without angina pectoris; Z95.1 Presence of aortocoronary bypass graft; E66.9 Obesity, unspecified; Z68.31 Body mass index [BMI] 31.0-31.9, adult; R55 Syncope and collapse; F03.90 Unspecified dementia, unspecified severity, without behavioral disturbance, psychotic disturbance, mood disturbance, and anxiety; W19.XXXA Unspecified fall, initial encounter; Z91.81 History of falling; Y92.009 Unspecified place in unspecified non-institutional (private) residence as the place of occurrence of the external cause; T45.515A Adverse effect of anticoagulants, initial encounter; E83.42 Hypomagnesemia; E83.39 Other disorders of phosphorus metabolism; Z66 Do not resuscitate; E87.6 Hypokalemia; E83.41 Hypermagnesemia
CPT/HCPCS: CCU; 36415; 36592; 71045; 82436; 86920; 93005; 93010; 93306; 96372; 96374; 97162-GP; 97530-GO; 99291; J0131; J0171; J7042; P9016

== ENCOUNTER 2017-12-18 17:30 | Emergency (ER) | payer OTHER, MEDICARE ==
[~2017-12-18] VITALS: Ht 170.2 cm; Wt 84.4 kg
[~2017-12-18 17:30] MED LIST: AMLODIPINE BESY10 M1 PO; ATENOLOL50 M1 PO; COUMADIN4 M1 PO; CRESTOR40 M2 PO; FERREX 150150 M1 PO; INDAPAMIDE1.25 M1 PO; NITROGLYCERIN0.4 M1 SL; PROTONIX40 M3 PO; VITAMIN B-121000 MC3 PO; VITAMIN D1000 UNIT PO
--- NOTE | 2017-12-18 19:08 | RADIOLOGY REPORT ---
EXAMINATION: XR FOOT, LEFT CLINICAL INFORMATION: Swelling left foot. Question fracture. COMPARISON: None TECHNIQUE: AP, lateral, and oblique views of the left foot. FINDINGS: There is diffuse osteopenia. There is no visible acute fracture, dislocation or lytic process. The ankle mortise and subtalar joints are normal. There is small retrocalcaneal and calcaneal heel spur seen. There is mild dorsal midfoot and anterior ankle joint soft tissue swelling. IMPRESSION: No acute fracture or dislocation. There is diffuse osteopenia.
--- NOTE | 2017-12-18 19:45 | ED ANKLE/FOOT INJURY COMPLAINT ---
History of Present Illness General Chief Complaint: Lower Extremity Problems Stated Complaint: L FOOT SWELLING AND REDNESS, PAIN TO TOUCH Source: patient, family, old records Exam Limitations: no limitations Vital Signs & Intake/Output Vital Signs & Intake/Output Vital Signs Date Time Temp Pulse Resp B/P B/P Pulse O2 O2 Flow FiO2 Mean Ox Delivery Rate 12/18 2124 96.8 62 18 144/65 90 Room Air 12/18 1936 Room Air 12/18 1734 98.1 73 18 123/72 93 Room Air Allergies Coded Allergies: No Known Allergies (11/18/17) Reconcile Medications Amlodipine Besylate 10 MG TABLET 1 TAB PO DAILY HTN (Reported) Atenolol 50 MG TABLET 1 TAB PO DAILY HTN (Reported) Cholecalciferol (Vitamin D3) (Vitamin D) 1,000 UNIT TABLET 1 TAB PO DAILY SUPPLEMENT (Reported) Cyanocobalamin (Vitamin B-12) 1,000 MCG TABLET 1 TAB PO DAILY SUPPLEMENT ( Reported) Indapamide 1.25 MG TABLET 1 TAB PO TWICE WEEKLY HTN (Reported) Iron Polysaccharide Complex (Ferrex 150) 150 MG IRON CAPSULE 1 CAP PO DAILY SUPPLEMENT (Reported) Nitroglycerin 0.4 MG TAB.SUBL 1 TAB SL AD Chest Pain (Reported) 1st sign of attack; may repeat every 5 minutes until relief; if pain persists after 3 tablets in 15 minutes, prompt medical att Pantoprazole Sodium (Protonix) 40 MG TABLET.DR 1 TAB PO BID s/p GI Bleed Rosuvastatin Calcium (Crestor) 40 MG TABLET 1 TAB PO DAILY HLD/CAD (Reported) Triage Note: PT STATES HER LEFT LOWER FOOT BEGAN TO SWELL AND TURN RED ON MONDAY. PT STATES SHE IS HAVING DIFFICULTY AMBULATING ON IT. PT STATES THIS HAPPEND TO HER ON October AND SHE HAD CELLULITIS AND WAS PUT ON KEFLEX AND THAT CLEARED IT ALL UP. Triage Nurses Notes Reviewed? yes HPI: Patient was admitted a month ago for a GI bleed that required cauterization and an ICU admission. Patient was subsequently discharged to short-term rehabilitation. Patient has been at home for almost 2 weeks. On Monday she noticed that her left foot began to swell and then yesterday she noticed that a surgeon return red and then today it was tender to the touch. Patient denies any chest pain or shortness of breath. She comes in for evaluation. Past History Travel History Traveled to [place] past 21 day No Medical History Any Pertinent Medical History? see below for history Neurological: dementia EENT: NONE Cardiovascular: AFIB, hypertension, CABG Respiratory: NONE (patient on 2LPM home O2) Gastrointestinal: GI BLEED Hepatic: NONE Renal: chronic kidney disease Musculoskeletal: NONE Psychiatric: NONE Endocrine: NONE History of MRSA: No History of VRE: No History of CDIFF: No Surgical History Surgical History: none (cabg), CABG Psychosocial History Who do you live with Family Services at Home None What is your primary language Sammarinese Tobacco Use: Quit >30 days ago ETOH Use: denies use Illicit Drug Use: denies illicit drug use Family History Hx Contributory? No Review of Systems Review of Systems Constitutional: Reports: no symptoms. EENTM: Reports: no symptoms. Respiratory: Reports: no symptoms. Cardiovascular: Reports: no symptoms. GI: Reports: no symptoms. Genitourinary: Reports: no symptoms. Musculoskeletal: Reports: see HPI. Skin: Reports: see HPI. Neurological/Psychological: Reports: no symptoms. Hematologic/Endocrine: Reports: no symptoms. Immunologic/Allergic: Reports: no symptoms. All Other Systems: Reviewed and Negative Physical Exam Physical Exam General Appearance: well developed/nourished, mild distress Head: atraumatic, normal appearance Eyes: Bilateral: PERRL, EOMI. Ears, Nose, Throat: normal pharynx, normal ENT inspection, hearing grossly normal Neck: normal inspection, supple Cardiovascular/Respiratory: normal breath sounds, normal peripheral pulses, regular rate/rhythm, no respiratory distress Back: normal inspection Leg/Knee/Thigh Left: normal range of motion, swelling Leg/Knee/Thigh Right: normal range of motion, normal inspection Ankle Left: erythema, swelling Foot Left: erythema, soft tissue tenderness, swelling Neuro/Vascular: normal motor function, normal sensation Psychiatric: awake, alert, oriented x 3 Skin: intact, normal color, warm/dry Progress Differential Diagnosis: DVT, cellulitis Plan of Care: Orders Procedure Date/time Status C-REACTIVE PROTEIN 12/18 2001 Complete HIGH SENSITIVITY CRP 12/18 174 Complete CBC WITHOUT DIFFERENTIAL 12/18 1748 Complete BASIC METABOLIC PANEL 12/18 1749 Complete Laboratory Tests 12/18/172001: Anion Gap 12, Estimated GFR 28 L, BUN/Creatinine Ratio 9.4, Glucose 106 H, Calcium 8.7, C-Reactive Prot, Quant 3.7 H, C-React Prot High Sens > 15.0 H, CBC w Diff NO MAN DIFF REQ, RBC 4.08 L, MCV 88.7, MCH 29.2, MCHC 32.9 L, RDW 17.2 H, MPV 10.6 H, Gran % 67.9, Lymphocytes % 21.8, Monocytes % 9.5 H, Eosinophils % 0.6, Basophils % 0.2, Absolute Granulocytes 5.7, Absolute Lymphocytes 1.8, Absolute Monocytes 0.8 H, Absolute Eosinophils 0, Absolute Basophils 0 Diagnostic Imaging: Viewed by Me: Radiology Read, Ultrasound. Discussed w/RAD: Radiology Read, Ultrasound. Radiology Impression: PATIENT: KB DIAZ PRESENT AGE: 87 PATIENT ACCOUNT NO: [id number] : [birth year] LOCATION: [facility] ORDERING PHYSICIAN: Marilee LEONARDO SERVICE DATE: 12/18/17 EXAM TYPE: RAD - XRY-FOOT COMPLETE, LEFT EXAMINATION: XR FOOT, LEFT CLINICAL INFORMATION: Swelling left foot. Question fracture. COMPARISON: None TECHNIQUE: AP, lateral, and oblique views of the left foot. FINDINGS: There is diffuse osteopenia. There is no visible acute fracture, dislocation or lytic process. The ankle mortise and subtalar joints are normal. There is small retrocalcaneal and calcaneal heel spur seen. There is mild dorsal midfoot and anterior ankle joint soft tissue swelling. IMPRESSION: No acute fracture or dislocation. There is diffuse osteopenia. DICTATED BY: Vinod Renee MD DATE/TIME DICTATED:12/18/171902 [employer]ONSO DATE/TIME TRANSCRIBED:12/18/171902 CONFIDENTIAL, DO NOT COPY WITHOUT APPROPRIATE AUTHORIZATION. <Electronically signed in Other Vendor System> SIGNED BY: Vinod Renee MD 12/18/171907, PATIENT: KB DIAZ PRESENT AGE: 87 PATIENT ACCOUNT NO: [id number] : [birth year] LOCATION: [facility] ORDERING PHYSICIAN: Valerio Calhoun MD SERVICE DATE: 12/18/17 EXAM TYPE: US - US-DUPLEX VENOUS EXTREM UNI EXAMINATION: US TRIPLEX LOWER EXTREMITY, LEFT CLINICAL INFORMATION: Edema. COMPARISON: None TECHNIQUE: Color-flow triplex imaging with spectral analysis and compression Doppler were performed on the lower extremity. FINDINGS: Respiratory variation, normal compression and augmented flow are noted throughout the lower extremity. The visualized common femoral vein, superficial femoral vein, profunda femoral vein, popliteal vein and midcalf peroneal and posterior tibial venous segments show no evidence of deep venous thrombosis. There is no Jovel's cyst. IMPRESSION: No evidence of deep venous thrombosis involving the lower extremity. DICTATED BY: Valerio Robertson MD DATE/TIME DICTATED:12/18/172116 [employer]:ALONSO DATE/TIME TRANSCRIBED:2116 CONFIDENTIAL, DO NOT COPY WITHOUT APPROPRIATE AUTHORIZATION. < Electronically signed in Other Vendor System> SIGNED BY: Valerio Robertson MD 12/18/172120 Departure Departure Disposition: HOME OR SELF CARE Condition: Stable Clinical Impression Primary Impression: Cellulitis Qualifiers: Site of cellulitis: extremity Site of cellulitis of extremity: lower extremity Laterality: left Qualified Code: L03.116 - Cellulitis of left lower limb Referrals: Juan Manuel JOHN,Clare (PCP/Family) Additional Instructions: take keflex as directed return if symptoms worsen or for any concerns Departure Forms: Customer Survey General Discharge Information Prescriptions: Current Visit Scripts Cephalexin (Keflex) 1 CAP PO TID #21 CAP
[2017-12-18 20:17] LABS: ABSOLUTE BASOPHIL COUNT 0 /CUMM (0.0-0.2); ABSOLUTE EOSINOPHIL COUNT 0 /CUMM (0.0-0.7); ABSOLUTE GRANULOCYTE CT 5.7 /CUMM (1.4-6.5); ABSOLUTE LYMPH COUNT 1.8 /CUMM (1.2-3.4); ABSOLUTE MONOCYTE COUNT 0.8 /CUMM (0.10-0.60); BASOPHIL % 0.2 % (0.0-2.0); EOSINOPHIL % 0.6 % (0-5); GRANULOCYTE % 67.9 % (42.2-75.2); HEMATOCRIT 36.2 % (37-47); MEAN CORPUSCULAR HGB 29.2 PG (27.0-31.0); MEAN CORPUSCULAR HGB CONC 32.9 G/DL (33.0-37.0); MEAN CORPUSCULAR VOLUME 88.7 FL (81.0-99.0); MEAN PLATELET VOLUME 10.6 FL (7.4-10.4); PLATELET COUNT 187 /CUMM (130-400); RBC DISTRIBUTION WIDTH 17.2 % (11.5-14.5); RED BLOOD CELL CT 4.08 /CUMM (4.20-5.40); WHITE BLOOD CELL COUNT 8.3 /CUMM (4.8-10.8)
--- NOTE | 2017-12-18 21:21 | ULTRASOUND REPORT ---
EXAMINATION: US TRIPLEX LOWER EXTREMITY, LEFT CLINICAL INFORMATION: Edema. COMPARISON: None TECHNIQUE: Color-flow triplex imaging with spectral analysis and compression Doppler were performed on the lower extremity. FINDINGS: Respiratory variation, normal compression and augmented flow are noted throughout the lower extremity. The visualized common femoral vein, superficial femoral vein, profunda femoral vein, popliteal vein and midcalf peroneal and posterior tibial venous segments show no evidence of deep venous thrombosis. There is no Jovel's cyst. IMPRESSION: No evidence of deep venous thrombosis involving the lower extremity.
[2017-12-18 21:25] VITALS: BP 144/65
[2017-12-18] MEDS ORDERED: KEFLEX250 M1 PO (22:02)
== END 2017-12-18 22:19 ==
LOC: ERH 17:30
PROVIDERS: Physician Assistant
DX: L03.116 Cellulitis of left lower limb (principal); I10 Essential (primary) hypertension; I48.91 Unspecified atrial fibrillation
CPT/HCPCS: 73630-LT